=== PATIENT | female | born 1980 | race Caucasian/White ===

== ENCOUNTER 2018-12-30 20:17 | Emergency (ER) | payer MEDICARE, MEDICAID, SELFPAY ==
[2018-12-30 20:22] VITALS: BP 141/84; PULSE 101; RESP 18; TEMP 36.3; O2SAT 98; BMI 35.6
[2018-12-30 21:40] LABS: Add Manual Diff / Slide Review NO; Basophils Absolute Auto 100 /uL (0-100); Eosinophils Absolute Auto 200 /uL (0-450); Hemoglobin 14.6 g/dL (12.0-16.0); Lymphocytes Absolute Auto 1300 /uL (1100-4500); Lymphocytes Percent Auto 21.7 % (25-40); Mean Corpuscular HGB Conc 33.9 % (30-36); Mean Corpuscular Hemoglobin 31.4 PG (26-34); Mean Corpuscular Volume 92.5 fL (80-100); Monocytes Absolute Auto 500 /uL (0-900); Monocytes Percent Auto 7.7 % (3-14); Neutrophils Absolute Auto 4000 /uL (1500-7000); Neutrophils Percent Auto 66.6 % (50-75); Platelet Count 226 X10^3/uL (150-400); Red Blood Cell Count 4.65 X10^6/uL (4.0-5.2); Red Cell Distribution Width 13.2 % (11.6-14.8)
[2018-12-30 21:51] LABS: Alanine Aminotransferase 23 IU/L (9-52); Albumin 4.6 g/dL (3.5-5.0); Albumin Globulin Ratio 1.4 (1.0-2.8); Alkaline Phosphatase 64 U/L (38-126); Aspartate Aminotransferase 21 IU/L (14-36); BUN Creatinine Ratio 21.3 (6-22); Bilirubin Total 0.5 mg/dL (0.2-1.3); Blood Urea Nitrogen 17 mg/dL (7-17); Calcium 9.5 mg/dL (8.4-10.2); Carbon Dioxide 27 mmol/L (22-32); Chloride 105 mmol/L (98-107); Estimated Glomerular Filt Rate > 60.0 mL/min (>60); Globulin 3.3 g/dL (1.7-4.1); Glucose 252 mg/dL (70-100); HEMOLYSIS 28 (0-50); Lipase 153 U/L (23-300); Potassium 4.3 mmol/L (3.4-5.1); Sodium 142 mmol/L (137-145); Total Protein 7.9 g/dL (6.3-8.2)
[2018-12-30 23:21] LABS: Bacteria Urine Few (2-10); Culture Indicated Urine Specimen Cultured; RBC Urine 30-100/HPF (0-5/HPF); Squamous Epithelial Cell Urine 1-5 /HPF; WBC Urine 1-5/HPF (0-5/HPF)
[2018-12-31] MEDS: cephALEXin 250 MG PREPACK 1 BOTTLE MISC (00:12)
[2018-12-31 00:24] VITALS: BP 115/60; PULSE 70; RESP 14; TEMP 36.8; O2SAT 98
--- NOTE | 2019-01-02 00:02 | ED.ABDPAIN ---
HPI - Abdominal Pain General Chief Complaint: Abdominal Pain Stated Complaint: STOMACH CRAMPS AND GOING INTO CHEST Time Seen by Provider: 12/30/18 22:15 Source: patient and family Mode of arrival: ambulatory Limitations: no limitations History of Present Illness HPI narrative: 38-year-old female with special needs presents with her mother and a chief complaint of suprapubic tenderness, dysuria in the absence of vaginal bleeding or discharge for the past few days. She has had no nausea or vomiting and denies fever or chills. She does have episodes of abdominal pain which goes a bit higher into her abdomen but not currently. Patient denies any history of the same. Her pain is worse with motion and improves with rest. MD complaint: abdominal pain Pain Consistency: intermittent Location: suprapubic Severity: mild Radiation: none Migration to: no migration Relieving factors: nothing Exacerbating factors: nothing Related Data Home Medications Medication Instructions Recorded Confirmed [TUMERIC] #0 09/13/17 12/26/18 multivitamin [Multiple Vitamins] #0 09/13/17 12/26/18 vitamin E [Aquasol E (d-alpha #0 09/13/17 12/26/18 tocopherol)] ascorbate calcium 500 mg tablet 500 mg PO DAILY 10/24/18 12/26/18 metformin 1,000 mg tablet 1,000 mg PO BID 10/24/18 12/26/18 Previous Rx's Medication Instructions Recorded Ajovy 225 mg [id number] QMONTH 09/07/18 #1 [id number] NS acetazolamide 250 mg tablet 250 mg PO BID #60 tab 10/24/18 cephalexin [Keflex] 500 mg PO QID 7 Days #28 cap 12/31/18 Allergies Allergy/AdvReac Type Severity Reaction Status Date / Time No Known Drug Allergies Allergy Verified 12/30/18 20:22 Review of Systems Constitutional Denies chills, Denies fever(s), Denies lethargy and Denies weakness Eyes Denies change in vision, Denies eye discharge, Denies irritation and Denies loss of vision ENT Ears, Nose, Mouth, and Throat: Denies change in voice, Denies neck pain and Denies sore throat Cardiovascular Denies chest pain, Denies irregular heart rhythm, Denies lightheadedness, Denies palpitations, Denies dyspnea, Denies dyspnea on exertion and Denies orthopnea Respiratory Denies cough, Denies dyspnea, Denies dyspnea on exertion and Denies wheezing Gastrointestinal Gastrointestinal: Reports abdominal pain, Denies change in bowel habits, Denies diarrhea, Denies nausea and Denies vomiting Genitourinary Denies hematuria, Reports dysuria, Reports pelvic pain, Denies flank pain, Denies urinary incontinence and Denies urinary urgency Musculoskeletal Denies neck pain Integumentary/Breasts Denies pruritus, Denies erythema, Denies rash and Denies wounds Neurologic Denies confusion, Denies loss of vision and Denies weakness Psychiatric Denies anxiety, Denies confusion, Denies depression, Denies homicidal ideation and Denies suicidal ideation Endocrine Denies palpitations Hematologic/Lymphatic Denies easy bruising Allergic/Immunologic Denies wheezing PFSH Social History Smoking Status: Never smoker Social History Smoking Status: Never smoker Exam Narrative Exam Narrative: GENERAL: 38-year-old female, resting comfortably, pleasant, in no obvious or significant distress HEAD: Atraumatic. Normocephalic. No temporal or scalp tenderness. EYES: Pupils equal round and reactive. Extraocular motions intact. No scleral icterus. No injection or drainage. ENT: Nose without bleeding, purulent drainage or septal hematoma. Throat without erythema, tonsillar hypertrophy or exudate. Uvula midline. Airway patent. NECK: Trachea midline. No JVD or lymphadenopathy. Supple, nontender, no meningeal signs. CARDIOVASCULAR: Regular rate and rhythm without murmurs, gallops, or rubs. RESPIRATORY: Clear to auscultation. Breath sounds equal bilaterally. No wheezes, rales, or rhonchi. GASTROINTESTINAL: Abdomen soft, mild suprapubic tenderness, nondistended. No hepato-splenomegaly, or palpable masses. No guarding. PELVIC: no bleeding or discharge. No pain. EXTREMITIES: No clubbing, cyanosis, or edema. No joint tenderness, effusion, or edema noted. BACK: Nontender without deformity or crepitance. No flank tenderness. NEURO: AOx3. SKIN: No rash or erythema. Initial Vital Signs Initial Vital Signs: Vital Signs Temperature 97.4 F L 12/30/18 20:22 Pulse Rate 101 H 12/30/18 20:22 Respiratory Rate 18 12/30/18 20:22 Blood Pressure 141/84 H 12/30/18 20:22 Pulse Oximetry 98 12/30/18 20:22 Course Orders Ordered: Discontinued Medications Cefazolin Sodium (Keflex) 1 bottle MISC SEEINSTR ONE Stop: 12/31/18 00:08 Last Admin: 12/31/18 00:12 Dose: 500 mg MDM - Abdominal Pain Differential Diagnosis Differential diagnosis: Likely abdominal pain, acute appendicitis, calculus of kidney, constipation, diverticulitis, endometriosis, gastroenteritis, pancreatitis and small bowel obstruction Medical Records Attestation: I reviewed the patient's medical records. Lab Data Attestation: I reviewed the patient's lab results. Result diagrams: 12/30/18 21:30 12/30/18 21:30 Lab Results 12/30/18 12/30/18 12/30/18 Range/Units 21:30 21:30 22:45 WBC 6.0 (4.5-11.0) X10^3/uL RBC 4.65 (4.0-5.2) X10^6/uL Hgb 14.6 (12.0-16.0) g/dL Hct 43.0 (36-46) % MCV 92.5 (80-100) fL MCH 31.4 (26-34) PG MCHC 33.9 (30-36) % RDW 13.2 (11.6-14.8) % Plt Count 226 (150-400) X10^3/uL Neut % (Auto) 66.6 (50-75) % Lymph % (Auto) 21.7 L (25-40) % [place] % (Auto) 7.7 (3-14) % Eos % (Auto) 3.0 (2-4) % Baso % (Auto) 1.0 (0-2) % Neut # (Auto) 4000 (3812-8995) /uL Lymph # (Auto) 1300 (8862-3024) /uL [place] # (Auto) 500 (0-900) /uL Eos # (Auto) 200 (0-450) /uL Baso # (Auto) 100 (0-100) /uL Sodium 142 (137-145) mmol/L Potassium 4.3 (3.4-5.1) mmol/L Chloride 105 (98-107) mmol/L Carbon Dioxide 27 (22-32) mmol/L BUN 17 (7-17) mg/dL Creatinine 0.80 (0.52-1.04) mg/dL Estimated GFR > 60.0 (>60) mL/min BUN/Creatinine Ratio 21.3 (6-22) Glucose 252 H (70-100) mg/dL Calcium 9.5 (8.4-10.2) mg/dL Total Bilirubin 0.5 (0.2-1.3) mg/dL AST 21 (14-36) IU/L ALT 23 (9-52) IU/L Alkaline Phosphatase 64 (38-126) U/L Total Protein 7.9 (6.3-8.2) g/dL Albumin 4.6 (3.5-5.0) g/dL Globulin 3.3 (1.7-4.1) g/dL Albumin/Globulin Ratio 1.4 (1.0-2.8) Lipase 153 (23-300) U/L Urine RBC 30-100/hpf H (0-5/HPF) Urine WBC 1-5/hpf (0-5/HPF) Ur Squamous Epith Cells 1-5 /hpf Urine Bacteria Few (2-10) H (None) Ur Culture Indicated? Specimen cultured Point of care testing: Urine Dip Bedside Urine Glucose 250 mg/dl Bedside Urine Bilirubin - Negative Bedside Urine Ketone - Negative Urine Specific [place] 1.020 Bedside Urine Occult Blood +++ Bedside Urine pH 6.0 Bedside Urine Protein +/- 15 Bedside Urine Urobilinogen +/- 1mg Bedside Urine Nitrite - Negative Bedside Urine Leukocytes + 70 Esterase MDM Narrative Medical decision making narrative: Multiple etiologies for patient's symptoms considered including: [Vaginal infection but thought less likely given lack of findings on pelvic. Diverticulitis or other abdominal infection, thought less likely given lack of abnormal labs or significant abdominal exam findings. UT I thought most likely given the quality of urine and suprapubic tenderness Patient's symptoms improved or duration of stay with above-stated therapies. Findings and discharge diagnosis discussed with patient/family followed by verbalization of understanding Return precautions discussed with patient/family whom verbalize understanding. Discharge Plan Departure Patient Disposition: Home Clinical Impression: UTI (urinary tract infection) Discharge Date/Time: 12/31/18 00:24 Interventions: ED Discharge Assessment Last Done: 12/31/18 00:24 Instructions: DI for Urinary Tract Infection (UTI) Activity Restrictions/Additional Instructions: *You have been diagnosed with [ acute urinary tract infection with pelvic discomfort and hematuria ] *What to do: *Take medications as directed: antibiotics have been sent to [facility] in [place] *Follow up with your primary care provider in 2-3 days, call for an appointment. Let them know you were seen in the Emergency Department and that we ask that you be seen in follow up *Return to ER if you should have any new, worsening or concerning symptoms Prescriptions: New cephalexin [Keflex] 500 mg capsule 500 mg PO QID 7 Days Qty: 28 RF: 0 No Action vitamin E [Aquasol E (d-alpha tocopherol)] 50 UNIT/1 ML drops Qty: 0 RF: 0 multivitamin [Multiple Vitamins] 1 EACH tablet Qty: 0 RF: 0 [TUMERIC] Qty: 0 RF: 0 ascorbate calcium 500 mg tablet 500 mg PO DAILY RF: 0 metformin 1,000 mg tablet 1,000 mg PO BID RF: 0 acetazolamide 250 mg tablet 250 mg PO BID Qty: 60 RF: 5 Ajovy 225 mg pen injector 225 mg [id number] QMONTH Qty: 1 RF: 11 Referrals: Alex Warren MD [Primary Care Provider] -
--- NOTE | 2019-01-02 00:08 | ED_ITS ---
HPI - Abdominal Pain General Chief Complaint: Abdominal Pain Stated Complaint: STOMACH CRAMPS AND GOING INTO CHEST Time Seen by Provider: 12/30/18 22:15 Source: patient and family Mode of arrival: ambulatory Limitations: no limitations History of Present Illness HPI narrative: 38-year-old female with special needs presents with her mother and a chief complaint of suprapubic tenderness, dysuria in the absence of vaginal bleeding or discharge for the past few days. She has had no nausea or vomiting and denies fever or chills. She does have episodes of abdominal pain which goes a bit higher into her abdomen but not currently. Patient denies any history of the same. Her pain is worse with motion and improves with rest. MD complaint: abdominal pain Pain Consistency: intermittent Location: suprapubic Severity: mild Radiation: none Migration to: no migration Relieving factors: nothing Exacerbating factors: nothing Related Data Home Medications Medication Instructions Recorded Confirmed [TUMERIC] #0 09/13/17 12/26/18 multivitamin [Multiple Vitamins] #0 09/13/17 12/26/18 vitamin E [Aquasol E (d-alpha #0 09/13/17 12/26/18 tocopherol)] ascorbate calcium 500 mg tablet 500 mg PO DAILY 10/24/18 12/26/18 metformin 1,000 mg tablet 1,000 mg PO BID 10/24/18 12/26/18 Previous Rx's Medication Instructions Recorded Ajovy 225 mg [id number] QMONTH 09/07/18 #1 [id number] NS acetazolamide 250 mg tablet 250 mg PO BID #60 tab 10/24/18 cephalexin [Keflex] 500 mg PO QID 7 Days #28 cap 12/31/18 Allergies Allergy/AdvReac Type Severity Reaction Status Date / Time No Known Drug Allergies Allergy Verified 12/30/18 20:22 Review of Systems Constitutional Denies chills, Denies fever(s), Denies lethargy and Denies weakness Eyes Denies change in vision, Denies eye discharge, Denies irritation and Denies loss of vision ENT Ears, Nose, Mouth, and Throat: Denies change in voice, Denies neck pain and Denies sore throat Cardiovascular Denies chest pain, Denies irregular heart rhythm, Denies lightheadedness, Denies palpitations, Denies dyspnea, Denies dyspnea on exertion and Denies orthopnea Respiratory Denies cough, Denies dyspnea, Denies dyspnea on exertion and Denies wheezing Gastrointestinal Gastrointestinal: Reports abdominal pain, Denies change in bowel habits, Denies diarrhea, Denies nausea and Denies vomiting Genitourinary Denies hematuria, Reports dysuria, Reports pelvic pain, Denies flank pain, Denies urinary incontinence and Denies urinary urgency Musculoskeletal Denies neck pain Integumentary/Breasts Denies pruritus, Denies erythema, Denies rash and Denies wounds Neurologic Denies confusion, Denies loss of vision and Denies weakness Psychiatric Denies anxiety, Denies confusion, Denies depression, Denies homicidal ideation and Denies suicidal ideation Endocrine Denies palpitations Hematologic/Lymphatic Denies easy bruising Allergic/Immunologic Denies wheezing PFSH Social History Smoking Status: Never smoker Social History Smoking Status: Never smoker Exam Narrative Exam Narrative: GENERAL: 38-year-old female, resting comfortably, pleasant, in no obvious or significant distress HEAD: Atraumatic. Normocephalic. No temporal or scalp tenderness. EYES: Pupils equal round and reactive. Extraocular motions intact. No scleral icterus. No injection or drainage. ENT: Nose without bleeding, purulent drainage or septal hematoma. Throat without erythema, tonsillar hypertrophy or exudate. Uvula midline. Airway patent. NECK: Trachea midline. No JVD or lymphadenopathy. Supple, nontender, no meningeal signs. CARDIOVASCULAR: Regular rate and rhythm without murmurs, gallops, or rubs. RESPIRATORY: Clear to auscultation. Breath sounds equal bilaterally. No wheezes , rales, or rhonchi. GASTROINTESTINAL: Abdomen soft, mild suprapubic tenderness, nondistended. No hepato-splenomegaly, or palpable masses. No guarding. PELVIC: no bleeding or discharge. No pain. EXTREMITIES: No clubbing, cyanosis, or edema. No joint tenderness, effusion, or edema noted. BACK: Nontender without deformity or crepitance. No flank tenderness. NEURO: AOx3. SKIN: No rash or erythema. Initial Vital Signs Initial Vital Signs: Vital Signs Temperature 97.4 F L 12/30/18 20:22 Pulse Rate 101 H 12/30/18 20:22 Respiratory Rate 18 12/30/18 20:22 Blood Pressure 141/84 H 12/30/18 20:22 Pulse Oximetry 98 12/30/18 20:22 Course Orders Ordered: Discontinued Medications Cefazolin Sodium (Keflex) 1 bottle MISC SEEINSTR ONE Stop: 12/31/18 00:08 Last Admin: 12/31/18 00:12 Dose: 500 mg MDM - Abdominal Pain Differential Diagnosis Differential diagnosis: Likely abdominal pain, acute appendicitis, calculus of kidney, constipation, diverticulitis, endometriosis, gastroenteritis, pancreatitis and small bowel obstruction Medical Records Attestation: I reviewed the patient's medical records. Lab Data Attestation: I reviewed the patient's lab results. Result diagrams: 12/30/18 21:30 12/30/18 21:30 Lab Results 12/30/18 12/30/18 12/30/18 Range/Units 21:30 21:30 22:45 WBC 6.0 (4.5-11.0) X10^3/uL RBC 4.65 (4.0-5.2) X10^6/uL Hgb 14.6 (12.0-16.0) g/dL Hct 43.0 (36-46) % MCV 92.5 (80-100) fL MCH 31.4 (26-34) PG MCHC 33.9 (30-36) % RDW 13.2 (11.6-14.8) % Plt Count 226 (150-400) X10^3/uL Neut % (Auto) 66.6 (50-75) % Lymph % (Auto) 21.7 L (25-40) % [place] % (Auto) 7.7 (3-14) % Eos % (Auto) 3.0 (2-4) % Baso % (Auto) 1.0 (0-2) % Neut # (Auto) 4000 (1107-9079) /uL Lymph # (Auto) 1300 (0308-0557) /uL [place] # (Auto) 500 (0-900) /uL Eos # (Auto) 200 (0-450) /uL Baso # (Auto) 100 (0-100) /uL Sodium 142 (137-145) mmol/L Potassium 4.3 (3.4-5.1) mmol/L Chloride 105 (98-107) mmol/L Carbon Dioxide 27 (22-32) mmol/L BUN 17 (7-17) mg/dL Creatinine 0.80 (0.52-1.04) mg/dL Estimated GFR > 60.0 (>60) mL/min BUN/Creatinine Ratio 21.3 (6-22) Glucose 252 H (70-100) mg/dL Calcium 9.5 (8.4-10.2) mg/dL Total Bilirubin 0.5 (0.2-1.3) mg/dL AST 21 (14-36) IU/L ALT 23 (9-52) IU/L Alkaline Phosphatase 64 (38-126) U/L Total Protein 7.9 (6.3-8.2) g/dL Albumin 4.6 (3.5-5.0) g/dL Globulin 3.3 (1.7-4.1) g/dL Albumin/Globulin Ratio 1.4 (1.0-2.8) Lipase 153 (23-300) U/L Urine RBC 30-100/hpf H (0-5/HPF) Urine WBC 1-5/hpf (0-5/HPF) Ur Squamous Epith Cells 1-5 /hpf Urine Bacteria Few (2-10) H (None) Ur Culture Indicated? Specimen cultured Point of care testing: Urine Dip Bedside Urine Glucose 250 mg/dl Bedside Urine Bilirubin - Negative Bedside Urine Ketone - Negative Urine Specific [place] 1.020 Bedside Urine Occult Blood +++ Bedside Urine pH 6.0 Bedside Urine Protein +/- 15 Bedside Urine Urobilinogen +/- 1mg Bedside Urine Nitrite - Negative Bedside Urine Leukocytes + 70 Esterase MDM Narrative Medical decision making narrative: Multiple etiologies for patient's symptoms considered including: [Vaginal infection but thought less likely given lack of findings on pelvic. Diverticulitis or other abdominal infection, thought less likely given lack of abnormal labs or significant abdominal exam findings. UT I thought most likely given the quality of urine and suprapubic tenderness Patient's symptoms improved or duration of stay with above-stated therapies. Findings and discharge diagnosis discussed with patient/family followed by verbalization of understanding Return precautions discussed with patient/family whom verbalize understanding. Discharge Plan Departure Patient Disposition: Home Clinical Impression: UTI (urinary tract infection) Discharge Date/Time: 12/31/18 00:24 Interventions: ED Discharge Assessment Last Done: 12/31/18 00:24 Instructions: DI for Urinary Tract Infection (UTI) Activity Restrictions/Additional Instructions: *You have been diagnosed with [ acute urinary tract infection with pelvic discomfort and hematuria ] *What to do: *Take medications as directed: antibiotics [facility] in [place] *Follow up with your primary care provider in 2-3 days, call for an appointment. Let them know you were seen in the Emergency Department and that we ask that you be seen in follow up *Return to ER if you should have any new, worsening or concerning symptoms Prescriptions: New cephalexin [Keflex] 500 mg capsule 500 mg PO QID 7 Days Qty: 28 RF: 0 No Action vitamin E [Aquasol E (d-alpha tocopherol)] 50 UNIT/1 ML drops Qty: 0 RF: 0 multivitamin [Multiple Vitamins] 1 EACH tablet Qty: 0 RF: 0 [TUMERIC] Qty: 0 RF: 0 ascorbate calcium 500 mg tablet 500 mg PO DAILY RF: 0 metformin 1,000 mg tablet 1,000 mg PO BID RF: 0 acetazolamide 250 mg tablet 250 mg PO BID Qty: 60 RF: 5 Ajovy 225 mg pen injector 225 mg [id number] QMONTH Qty: 1 RF: 11 Referrals: Alex Warren MD [Primary Care Provider] -
== END 2018-12-31 00:24 | disposition home or self-care (01) ==
PROVIDERS: Emergency Provider Emergency Medicine; PCP Family Medicine
DX: N39.0 Urinary tract infection, site not specified (principal)
CPT/HCPCS: 36591; 80053; 81003; 81015; 83690; 85025; 87086; 93005; 99283; 99284

== ENCOUNTER 2019-02-27 14:52 | Emergency (ER) | payer MEDICARE, MEDICAID, SELFPAY ==
[2019-02-27 15:18] VITALS: BP 116/76; PULSE 90; RESP 16; TEMP 36.4; O2SAT 98; BMI 37.2
--- NOTE | 2019-02-27 16:55 | PC.NURSE ---
Pt w/ special needs. Multiple complaints. c/o ear pain, currently being treated for uti. Feels 'awful'. No fever. Easy work of breathing. Taking po food and fluids. Denies nausea / vomiting. Abd soft, non tender. Breath sounds clear. Mother at bedside.
--- NOTE | 2019-02-27 17:08 | ED_ITS ---
HPI - URI/Sore Throat General Chief Complaint: Upper Respiratory Symptoms Stated Complaint: migraine,stomach problems,massive sore throat Time Seen by Provider: 02/27/19 16:56 Source: patient and family (Mother) Mode of arrival: ambulatory Limitations: no limitations History of Present Illness HPI Narrative: This is a 39-year-old female comes to the emergency department with complaint of headache, abdominal pain. Patient has had urinary frequency, urgency and dysuria. Patient has had a little bit of flank pain. She has not had any fevers. She has had some nausea but no vomiting she does occasionally get diarrhea which they relate to her dilvoproex, she takes this for migraines. She takes medication for diarrhea. She has had normal bowel movements recently. She states the pain is sort of in her abdomen sort of mid abdomen and bandlike. Patient states also sort of suprapubic. She has not had any vaginal bleeding or discharge. she has not had any prior surgeries. Related Data Home Medications Medication Instructions Recorded Confirmed [TUMERIC] #0 09/13/17 12/26/18 multivitamin [Multiple Vitamins] #0 09/13/17 12/26/18 vitamin E [Aquasol E (d-alpha #0 09/13/17 12/26/18 tocopherol)] ascorbate calcium 500 mg tablet 500 mg PO DAILY 10/24/18 12/26/18 divalproex 1,000 mg PO DAILY 02/27/19 02/27/19 hydrocortisone-acetic acid 02/27/19 metformin 1,500 mg PO DAILY 02/27/19 02/27/19 niacin [Niacor] 02/27/19 niacin [Niacor] 02/27/19 Previous Rx's Medication Instructions Recorded Ajovy 225 mg SUBCUT QMONTH #1 unit NS 09/07/18 diphenoxylate-atropine 2.5 1 tab PO Q12H PRN #60 tab 01/26/19 mg-0.025 mg tablet nitrofurantoin monohyd/m-cryst 100 mg PO BID #10 cap 02/27/19 [Macrobid] Allergies Allergy/AdvReac Type Severity Reaction Status Date / Time No Known Drug Allergies Allergy Verified 12/30/18 20:22 Review of Systems Review of Systems ROS Unobtainable: All systems reviewed & are unremarkable except as noted in HPI and below Constitutional Denies chills, Denies fever(s), Reports headache(s), Denies lethargy and Denies weakness ENT Ears, Nose, Mouth, and Throat: Reports headache(s) Cardiovascular Denies chest pain, Denies irregular heart rhythm, Denies lightheadedness, Denies palpitations, Denies dyspnea and Denies dyspnea on exertion Respiratory Denies change in phlegm color, Denies chest congestion, Denies cough, Denies dyspnea, Denies dyspnea on exertion and Denies wheezing Gastrointestinal Gastrointestinal: Reports abdominal pain, Denies change in bowel habits, Denies diarrhea, Denies nausea and Denies vomiting Genitourinary Denies abnormal vaginal bleeding, Denies hematuria, Reports urinary frequency, Reports dysuria, Denies flank pain, Denies urinary incontinence, Reports urinary urgency and Denies vaginal discharge Musculoskeletal Denies back pain Neurologic Reports headache(s) and Denies weakness Endocrine Denies palpitations Allergic/Immunologic Denies wheezing [facility] Medical History (Updated 02/27/19 @ 19:23 by Leta Reis DO) Developmental delay, moderate (Chronic) Migraines (Chronic) Social History Smoking Status: Never smoker Social History Smoking Status: Never smoker Exam Narrative Exam Narrative: GENERAL: Alert and oriented x three, obese, well-appearing female in mild distress. HEENT: Head normocephalic, atraumatic, EOMI, pupils reactive, face symmetric, moist mucous membranes NECK: Supple, full range of motion CARDIOVASCULAR: Regular rate and rhythm without murmurs, rubs or gallops. RESPIRATORY: Breath sounds equal bilaterally, no wheezes rales or rhonchi. ABDOMEN: Soft, mild generalized tenderness. Normoactive bowel sounds all 4 quadrants. No guarding or rebound, rigidity, no mass : No CVA tenderness EXTREMITIES: Normal range of motion, no clubbing or edema. Neurovascularly intact NEUROLOGICAL: Cranial nerves II through XII grossly intact. Moving all extremities SKIN: Warm, dry, no petechiae, no rashes or lesions. Initial Vital Signs Initial Vital Signs: Vital Signs Temperature 97.5 F L 02/27/19 15:18 Pulse Rate 90 02/27/19 15:18 Respiratory Rate 16 02/27/19 15:18 Blood Pressure 116/76 02/27/19 15:18 Pulse Oximetry 98 02/27/19 15:18 Course Orders Ordered: ED Orders 02/27/19 17:15 Urine Culture Stat Urine Microscopic Stat 02/27/19 18:15 Complete Blood Count AUTO DIFF Stat Comprehensive Metabolic Panel Stat Discontinued Medications Sodium Chloride (Normal Saline 0.9%) 1,000 mls @ 1,000 mls/hr IV BOLUS ONE Stop: 02/27/19 18:41 Last Infusion: 02/27/19 19:25 Dose: 0 mls/hr Admin: 02/27/19 18:20 Dose: 1,000 mls/hr Ketorolac Tromethamine (Toradol) 30 mg IV NOW ONE Stop: 02/27/19 17:43 Last Admin: 02/27/19 18:19 Dose: 30 mg Nitrofurantoin Macrocrystals (Macrobid 100 Mg Capsule) 100 mg PO NOW ONE Stop: 02/27/19 19:20 Last Admin: 02/27/19 19:26 Dose: 100 mg Ondansetron HCl (Zofran) 4 mg IV NOW ONE Stop: 02/27/19 17:43 Last Admin: 02/27/19 18:19 Dose: 4 mg Vital Signs - 8 hr 02/27/19 15:18 02/27/19 17:17 02/27/19 19:37 Temperature 97.5 F L Pulse Rate 90 85 77 Respiratory Rate 16 18 20 Blood Pressure 116/76 113/50 L Blood Pressure [Left Arm] 130/101 H Pulse Oximetry 98 99 100 MDM - URI/Sore Throat Lab Data Attestation: I reviewed the patient's lab results. Result diagrams: 02/27/19 18:15 02/27/19 18:15 Lab Results 02/27/19 02/27/19 02/27/19 Range/Units 17:15 18:15 18:15 WBC 5.9 (4.5-11.0) X10^3/uL RBC 5.12 (4.0-5.2) X10^6/uL Hgb 15.4 (12.0-16.0) g/dL Hct 47.0 H (36-46) % MCV 91.8 (80-100) fL MCH 30.2 (26-34) PG MCHC 32.8 (30-36) % RDW 12.6 (11.6-14.8) % Plt Count 184 (150-400) X10^3/uL Neut % (Auto) 61.2 (50-75) % Lymph % (Auto) 28.3 (25-40) % [place] % (Auto) 8.4 (3-14) % Eos % (Auto) 1.6 L (2-4) % Baso % (Auto) 0.5 (0-2) % Neut # (Auto) 3600 (7244-3183) /uL Lymph # (Auto) 1700 (8507-5688) /uL [place] # (Auto) 500 (0-900) /uL Eos # (Auto) 100 (0-450) /uL Baso # (Auto) 0 (0-100) /uL Sodium 138 (137-145) mmol/L Potassium 4.1 (3.4-5.1) mmol/L Chloride 102 (98-107) mmol/L Carbon Dioxide 23 (22-32) mmol/L BUN 12 (7-17) mg/dL Creatinine 0.60 (0.52-1.04) mg/dL Estimated GFR > 60.0 (>60) mL/min BUN/Creatinine Ratio 20.0 (6-22) Glucose 108 H (70-100) mg/dL Calcium 9.7 (8.4-10.2) mg/dL Total Bilirubin 0.5 (0.2-1.3) mg/dL AST 23 (14-36) IU/L ALT 26 (9-52) IU/L Alkaline Phosphatase 59 (38-126) U/L Total Protein 7.9 (6.3-8.2) g/dL Albumin 4.6 (3.5-5.0) g/dL Globulin 3.3 (1.7-4.1) g/dL Albumin/Globulin Ratio 1.4 (1.0-2.8) Urine RBC 0-1/hpf D (0-5/HPF) Urine WBC 1-5/hpf (0-5/HPF) Ur Squamous Epith Cells 1-5 /hpf Ur Transition Epith Cell 1-5/hpf (0-5/HPF) Urine Bacteria Few (2-10) H (None) Ur Culture Indicated? Specimen cultured Point of Care Testing Test Results Negative Rapid Strep A Negative Urine Dip Bedside Urine Glucose Negative Bedside Urine Bilirubin - Negative Bedside Urine Ketone ++ [address] 1.020 Bedside Urine Occult Blood - Negative Bedside Urine pH 6.5 Bedside Urine Protein - Negative Bedside Urine Urobilinogen +/- 1mg Bedside Urine Nitrite - Negative Bedside Urine Leukocytes ++ 125 Esterase MDM Narrative Medical decision making narrative: Patient was complaining of migraines, she has had Toradol and Zofran in the past which has been helpful. She has been having some urinary symptoms. Urine shows some leukocyte esterase. Last urine culture showed mixed chino. CBC and CMP did not show any major changes. Discussed with patient and mother, plan to start a new antibiotic although discussed at that urinalysis did not show a complete slam dunk for infection. Patient had leukocyte esterase but no nitrates. She did have some HPF. Urine culture was sent. Patient was started on Macrobid. We discussed lab work. We discussed possible further imaging but at this time was deferred by family. Patient had is only mildly tender on examination. she is feeling little bit more comfortable with Toradol. She is eating juice and crackers and cheese stick in the room. Discussed with Mom signs and symptoms to watch out for and reasons to return emergently. Discharge Plan Departure Patient Disposition: Home Clinical Impression: Abdominal pain, Migraine UTI (urinary tract infection) Qualifiers: Urinary tract infection type: site unspecified Discharge Date/Time: 02/27/19 19:38 Interventions: ED Discharge Assessment Last Done: 02/27/19 19:37 Instructions: DI for Urinary Tract Infection (UTI) Activity Restrictions/Additional Instructions: Follow-up with primary care in the next 2-3 days for recheck. Take antibiotics until they are completely gone. I suspect you may still be having urinary symptoms but urine culture has been sent it takes 48 hours for urine cultures to result. Continue with ibuprofen up to 800 mg every 8 hours and/or Tylenol to a 1000 mg every 8 hours as needed for symptoms. Return to the ER for fevers greater than 100.4, persistent vomiting, rapidly worsening abdominal or back pain, passing out, blockers bloody stools or other new or concerning symptoms. Prescriptions: New nitrofurantoin monohyd/m-cryst [Macrobid] 100 mg capsule 100 mg PO BID Qty: 10 RF: 0 No Action vitamin E [Aquasol E (d-alpha tocopherol)] 50 UNIT/1 ML drops Qty: 0 RF: 0 multivitamin [Multiple Vitamins] 1 EACH tablet Qty: 0 RF: 0 [TUMERIC] Qty: 0 RF: 0 diphenoxylate-atropine [Lomotil] 2.5-0.025 mg tablet 1 tab PO Q12H PRN (Reason: diarrhea) Qty: 60 RF: 2 hydrocortisone-acetic acid 1-2 % drops RF: 0 divalproex 500 mg tablet extended release 24 hr 1,000 mg PO DAILY RF: 0 niacin [Niacor] 500 mg tablet RF: 0 metformin 750 mg tablet extended release 24 hr 1,500 mg PO DAILY RF: 0 niacin [Niacor] 500 mg tablet RF: 0 ascorbate calcium 500 mg tablet 500 mg PO DAILY RF: 0 Ajovy 225 mg pen injector 225 mg SUBCUT QMONTH Qty: 1 RF: 11 Referrals: Alex Warren MD [Primary Care Provider] -
[2019-02-27 17:17] VITALS: BP 130/101; PULSE 85; RESP 18; O2SAT 99
[2019-02-27 18:05] LABS: Bacteria Urine Few (2-10); Culture Indicated Urine Specimen Cultured; RBC Urine 0-1/HPF (0-5/HPF); Squamous Epithelial Cell Urine 1-5 /HPF; Transitional Epi Cells Urine 1-5/HPF (0-5/HPF); WBC Urine 1-5/HPF (0-5/HPF)
[2019-02-27] MEDS: KETOROLAC 60 MG/2 ML VIAL 30 MG IV (18:19)
[2019-02-27] MEDS: ONDANSETRON 4 MG/2 ML INJ IV (18:19)
[2019-02-27] MEDS: SODIUM CHLORIDE 0.9% 1,000 ML 1000 ML IV (18:20)
[2019-02-27 18:54] LABS: Alanine Aminotransferase 26 IU/L (9-52); Albumin 4.6 g/dL (3.5-5.0); Albumin Globulin Ratio 1.4 (1.0-2.8); Alkaline Phosphatase 59 U/L (38-126); Aspartate Aminotransferase 23 IU/L (14-36); Bilirubin Total 0.5 mg/dL (0.2-1.3); Blood Urea Nitrogen 12 mg/dL (7-17); Calcium 9.7 mg/dL (8.4-10.2); Carbon Dioxide 23 mmol/L (22-32); Chloride 102 mmol/L (98-107); Estimated Glomerular Filt Rate > 60.0 mL/min (>60); Globulin 3.3 g/dL (1.7-4.1); Glucose 108 mg/dL (70-100); HEMOLYSIS < 15 (0-50); Potassium 4.1 mmol/L (3.4-5.1); Sodium 138 mmol/L (137-145); Total Protein 7.9 g/dL (6.3-8.2)
[2019-02-27 18:57] LABS: Add Manual Diff / Slide Review NO; Basophils Absolute Auto 0 /uL (0-100); Basophils Percent Auto 0.5 % (0-2); Eosinophils Absolute Auto 100 /uL (0-450); Eosinophils Percent Auto 1.6 % (2-4); Hemoglobin 15.4 g/dL (12.0-16.0); Lymphocytes Absolute Auto 1700 /uL (1100-4500); Lymphocytes Percent Auto 28.3 % (25-40); Mean Corpuscular HGB Conc 32.8 % (30-36); Mean Corpuscular Hemoglobin 30.2 PG (26-34); Mean Corpuscular Volume 91.8 fL (80-100); Monocytes Absolute Auto 500 /uL (0-900); Monocytes Percent Auto 8.4 % (3-14); Neutrophils Absolute Auto 3600 /uL (1500-7000); Neutrophils Percent Auto 61.2 % (50-75); Platelet Count 184 X10^3/uL (150-400); Red Blood Cell Count 5.12 X10^6/uL (4.0-5.2); Red Cell Distribution Width 12.6 % (11.6-14.8); White Blood Cell Count 5.9 X10^3/uL (4.5-11.0)
[2019-02-27] MEDS: NITROFURANTOIN ER 100 MG CAPSULE PO (19:26)
[2019-02-27 19:37] VITALS: BP 113/50; PULSE 77; RESP 20; O2SAT 100
== END 2019-02-27 19:38 | disposition home or self-care (01) ==
PROVIDERS: Emergency Provider Emergency Medicine; PCP Family Medicine
DX: R10.9 Unspecified abdominal pain (principal); G43.909 Migraine, unspecified, not intractable, without status migrainosus; R11.0 Nausea; R30.0 Dysuria
CPT/HCPCS: 36591; 80053; 81003; 81015; 81025; 85025; 87086; 87880; 96361; 96374; 96375; 99283; 99284; J1885; J2405

== ENCOUNTER 2019-02-28 16:22 | Emergency (ER) | payer MEDICARE, MEDICAID, SELFPAY ==
[2019-02-28 16:28] VITALS: PULSE 99; RESP 20; TEMP 36.9; O2SAT 99
--- NOTE | 2019-02-28 16:52 | ED.ALLEREA ---
HPI - Allergic Reaction <RICHARD Taylor - Last Filed: 02/28/19 21:30> General Chief complaint: Allergic Reaction Stated complaint: ALLERGIC REACTION Time Seen by Provider: 02/28/19 16:52 Source: patient and family Mode of arrival: ambulatory Limitations: no limitations History of Present Illness HPI narrative: 39-year-old female with history of developmental delay and is a nonsmoker here for complaint of having allergic type reaction with pain with swallowing and feeling lightheaded after taking niacin today. She is never taking niacin before and shortly after taking it she had the symptoms. she feels some discomfort in her throat area. No chest pain. out in triage as it was reported that the difficulty in obtaining a blood pressure. She was ambulatory to the emergency room. Signs and symptoms started just prior to arrival. MD complaint: allergic reaction Related Data Home Medications Medication Instructions Recorded Confirmed [TUMERIC] #0 09/13/17 12/26/18 multivitamin [Multiple Vitamins] #0 09/13/17 12/26/18 vitamin E [Aquasol E (d-alpha #0 09/13/17 12/26/18 tocopherol)] ascorbate calcium 500 mg tablet 500 mg PO DAILY 10/24/18 12/26/18 divalproex 1,000 mg PO DAILY 02/27/19 02/27/19 hydrocortisone-acetic acid 02/27/19 metformin 1,500 mg PO DAILY 02/27/19 02/27/19 niacin [Niacor] 02/27/19 niacin [Niacor] 02/27/19 Previous Rx's Medication Instructions Recorded Ajovy 225 mg SUBCUT QMONTH #1 unit NS 09/07/18 diphenoxylate-atropine 2.5 1 tab PO Q12H PRN #60 tab 01/26/19 mg-0.025 mg tablet nitrofurantoin monohyd/m-cryst 100 mg PO BID #10 cap 02/27/19 [Macrobid] ondansetron 4 mg PO BID-TID PRN #6 tab 02/28/19 prednisone 40 mg PO DAILY #8 tab 02/28/19 Allergies Allergy/AdvReac Type Severity Reaction Status Date / Time niacin Allergy Severe Anaphylaxis Verified 02/28/19 17:01 Review of Systems <RICHARD Taylor - Last Filed: 02/28/19 21:30> Eyes Denies change in vision, Denies eye discharge, Denies irritation and Denies loss of vision ENT Comments: Facial swelling shortness of breath and sensation of a tightening in her throat it with pain Cardiovascular Denies chest pain, Denies irregular heart rhythm, Denies lightheadedness, Denies palpitations, Denies dyspnea, Denies dyspnea on exertion and Denies orthopnea Respiratory Denies cough, Denies dyspnea, Denies dyspnea on exertion and Denies wheezing Gastrointestinal Gastrointestinal: Denies abdominal pain, Denies change in bowel habits, Denies diarrhea, Denies nausea and Denies vomiting Genitourinary Denies hematuria, Denies flank pain, Denies urinary incontinence and Denies urinary urgency Integumentary/Breasts Denies pruritus, Denies erythema, Denies rash and Denies wounds Neurologic Denies loss of vision Endocrine Denies palpitations Hematologic/Lymphatic Denies easy bruising Allergic/Immunologic Denies wheezing PFSH <RICHARD Taylor - Last Filed: 02/28/19 21:30> Medical History Developmental delay, moderate (Chronic) Migraines (Chronic) Social History Smoking Status: Never smoker Social History Smoking Status: Never smoker Exam <RICHARD Taylor - Last Filed: 02/28/19 21:30> Initial Vital Signs Initial Vital Signs: Vital Signs Temperature 98.4 F 02/28/19 16:28 Pulse Rate 99 H 02/28/19 16:28 Respiratory Rate 20 02/28/19 16:28 Pulse Oximetry 99 02/28/19 16:28 Const General: cooperative, well developed, acute distress and anxious Nutritional Appearance: well nourished Orientation: alert, awake and oriented x3 HENMT Mouth: oral mucosae normal and moist mucous membranes Eyes Conjunctivae: conjunctivae normal Sclera: sclerae normal Pupils: PERRL EOM: EOM intact bilaterally Neck Neck: normal visual inspection, trachea midline, No lymphadenopathy, No midline deformity and No JVD Lymphatic: No lymphedema Resp Effort & Inspection: normal respiratory effort, able to speak in complete sentences, no respiratory distress and no use of accessory muscles Auscultation: clear to auscultation bilaterally, no rales, no rhonchi and no wheezes Cardio Rate: regular rate Rhythm: regular rhythm Heart Sounds: no click, no gallops, no murmurs and no rubs Skin General: no rashes or lesions noted, No jaundice and No petechiae Neuro General: alert, oriented x3, gait normal and no focal motor deficits Speech: speech normal Extrem General: full ROM, no clubbing, cyanosis or edema, no pedal edema and no calf tenderness <Felipe Rockwell DO - Last Filed: 03/01/19 00:02> Initial Vital Signs Initial Vital Signs: Vital Signs Temperature 98.4 F 02/28/19 16:28 Pulse Rate 99 H 02/28/19 16:28 Respiratory Rate 20 02/28/19 16:28 Pulse Oximetry 99 02/28/19 16:28 Course <RICHARD Taylor - Last Filed: 02/28/19 21:30> Orders Ordered: Discontinued Medications Diphenhydramine HCl (Benadryl) 25 mg IV NOW ONE Stop: 02/28/19 16:53 Last Admin: 02/28/19 17:08 Dose: 25 mg Epinephrine HCl (Adrenalin) 0.5 mg IM NOW ONE Stop: 02/28/19 17:10 Last Admin: 02/28/19 16:55 Dose: 0.5 mg Famotidine (Pepcid) 20 mg in 50 mls @ 200 mls/hr IV NOW ONE Stop: 02/28/19 17:06 Last Infusion: 02/28/19 17:22 Dose: 0 mls/hr Admin: 02/28/19 17:07 Dose: 200 mls/hr Sodium Chloride (Normal Saline 0.9%) 1,000 mls @ 1,000 mls/hr IV BOLUS ONE Stop: 02/28/19 17:51 Last Infusion: 02/28/19 18:29 Dose: 0 mls/hr Infusion: 02/28/19 17:24 Dose: 999 mls/hr Infusion: 02/28/19 17:09 Dose: 300 mls/hr Admin: 02/28/19 17:08 Dose: 1,000 mls/hr Methylprednisolone (Solu-Medrol 125 Mg Vial) 125 mg IV NOW ONE Stop: 02/28/19 16:53 Last Admin: 02/28/19 17:07 Dose: 125 mg Ondansetron HCl (Zofran Odt) 4 mg SL NOW ONE Stop: 02/28/19 19:52 Last Admin: 02/28/19 19:54 Dose: 4 mg Vital Signs - 8 hr 02/28/19 16:28 02/28/19 17:01 02/28/19 17:35 Temperature 98.4 F Pulse Rate 99 H 100 H 109 H Respiratory Rate 20 20 20 Blood Pressure Blood Pressure [Right Arm] 114/64 124/74 Pulse Oximetry 99 100 100 02/28/19 18:30 02/28/19 19:30 02/28/19 19:54 Temperature Pulse Rate 107 H 108 H 100 H Respiratory Rate 24 23 16 Blood Pressure 147/94 H Blood Pressure [Right Arm] 117/53 L 133/89 Pulse Oximetry 100 96 <Felipe Rockwell DO - Last Filed: 03/01/19 00:02> Orders Ordered: Discontinued Medications Diphenhydramine HCl (Benadryl) 25 mg IV NOW ONE Stop: 02/28/19 16:53 Last Admin: 02/28/19 17:08 Dose: 25 mg Epinephrine HCl (Adrenalin) 0.5 mg IM NOW ONE Stop: 02/28/19 17:10 Last Admin: 02/28/19 16:55 Dose: 0.5 mg Famotidine (Pepcid) 20 mg in 50 mls @ 200 mls/hr IV NOW ONE Stop: 02/28/19 17:06 Last Infusion: 02/28/19 17:22 Dose: 0 mls/hr Admin: 02/28/19 17:07 Dose: 200 mls/hr Sodium Chloride (Normal Saline 0.9%) 1,000 mls @ 1,000 mls/hr IV BOLUS ONE Stop: 02/28/19 17:51 Last Infusion: 02/28/19 18:29 Dose: 0 mls/hr Infusion: 02/28/19 17:24 Dose: 999 mls/hr Infusion: 02/28/19 17:09 Dose: 300 mls/hr Admin: 02/28/19 17:08 Dose: 1,000 mls/hr Methylprednisolone (Solu-Medrol 125 Mg Vial) 125 mg IV NOW ONE Stop: 02/28/19 16:53 Last Admin: 02/28/19 17:07 Dose: 125 mg Ondansetron HCl (Zofran Odt) 4 mg SL NOW ONE Stop: 02/28/19 19:52 Last Admin: 02/28/19 19:54 Dose: 4 mg Vital Signs - 8 hr 02/28/19 16:28 02/28/19 17:01 02/28/19 17:35 Temperature 98.4 F Pulse Rate 99 H 100 H 109 H Respiratory Rate 20 20 20 Blood Pressure Blood Pressure [Right Arm] 114/64 124/74 Pulse Oximetry 99 100 100 02/28/19 18:30 02/28/19 19:30 02/28/19 19:54 Temperature Pulse Rate 107 H 108 H 100 H Respiratory Rate 24 23 16 Blood Pressure 147/94 H Blood Pressure [Right Arm] 117/53 L 133/89 Pulse Oximetry 100 96 MDM - Allergic Reaction <RICHARD Taylor - Last Filed: 02/28/19 21:30> Lab Data Urine Dip Bedside Urine Glucose Negative Bedside Urine Bilirubin - Negative Bedside Urine Ketone ++ 40 Urine Specific [place] 1.020 Bedside Urine Occult Blood - Negative Bedside Urine pH 6.0 Bedside Urine Protein - Negative Bedside Urine Urobilinogen - Negative Bedside Urine Nitrite - Negative Bedside Urine Leukocytes +/- 15 Esterase MDM Narrative Medical decision making narrative: The patient was given epinephrine, Solu-Medrol, Benadryl, and Pepcid in the emergency room. Her symptoms improved. She was observed a couple hours and did not have return of her symptoms. she did feel a little bit of discomfort to her throat area however she was able to speak full sentences no acute distress. she was treated for anaphylactic allergic response due to her subjective of her throat feeling tight and throat pain along with difficulty in obtaining a blood pressure. Differential is for flushing and sensation from the niacin at self. She is instructed to stop taking the niacin. Follow up with primary care provider next couple days for re-evaluation. She is prescribed a short course of steroids over the next few days to prevent return of symptoms. For any worsening symptoms return to the emergency room. <Felipe Rockwell DO - Last Filed: 03/01/19 00:02> Lab Data Urine Dip Bedside Urine Glucose Negative Bedside Urine Bilirubin - Negative Bedside Urine Ketone ++ 40 Urine Specific [place] 1.020 Bedside Urine Occult Blood - Negative Bedside Urine pH 6.0 Bedside Urine Protein - Negative Bedside Urine Urobilinogen - Negative Bedside Urine Nitrite - Negative Bedside Urine Leukocytes +/- 15 Esterase Discharge Plan Departure Patient Disposition: Home Clinical Impression: Anaphylaxis Qualifiers: Encounter type: initial encounter Qualified Code(s): T78.2XXA - Anaphylactic shock, unspecified, initial encounter Discharge Date/Time: 02/28/19 19:55 Interventions: ED Discharge Assessment Last Done: 02/28/19 19:54 Instructions: DI for Anaphylaxis Activity Restrictions/Additional Instructions: Signs and symptoms presents as an allergic reaction. You were treated with multiple medications to help reverse this. UR placed on a short course of prednisone steroid to help keep symptoms from returning. Stop taking the niacin. Follow up with her primary care provider next couple days for re-evaluation. For any worsening symptoms return to the emergency room. Prescriptions: New prednisone 20 mg tablet 40 mg PO DAILY Qty: 8 RF: 0 ondansetron 4 mg tablet,disintegrating 4 mg PO BID-TID PRN (Reason: nausea and vomiting) Qty: 6 RF: 0 No Action vitamin E [Aquasol E (d-alpha tocopherol)] 50 UNIT/1 ML drops Qty: 0 RF: 0 multivitamin [Multiple Vitamins] 1 EACH tablet Qty: 0 RF: 0 [TUMERIC] Qty: 0 RF: 0 diphenoxylate-atropine [Lomotil] 2.5-0.025 mg tablet 1 tab PO Q12H PRN (Reason: diarrhea) Qty: 60 RF: 2 hydrocortisone-acetic acid 1-2 % drops RF: 0 divalproex 500 mg tablet extended release 24 hr 1,000 mg PO DAILY RF: 0 niacin [Niacor] 500 mg tablet RF: 0 metformin 750 mg tablet extended release 24 hr 1,500 mg PO DAILY RF: 0 niacin [Niacor] 500 mg tablet RF: 0 nitrofurantoin monohyd/m-cryst [Macrobid] 100 mg capsule 100 mg PO BID Qty: 10 RF: 0 ascorbate calcium 500 mg tablet 500 mg PO DAILY RF: 0 Ajovy 225 mg pen injector 225 mg SUBCUT QMONTH Qty: 1 RF: 11 Referrals: Alex Warren MD [Primary Care Provider] - <Felipe Rockwell DO - Last Filed: 04/03/19 00:02> Cosign ED Attending Cosignature Attestation: I was immediately available in the department for consultation. Documentation has been reviewed. I agree with assessment and plan.
[2019-02-28] MEDS: EPINEPHrine 1 MG/ML AMPUL 0.5 MG IM (16:55)
[2019-02-28 17:01] VITALS: BP 114/64; PULSE 100; RESP 20; O2SAT 100
[2019-02-28] MEDS: FAMOTIDINE 20 MG/50 ML PIGGYBACK 200 MG IV (17:07)
[2019-02-28] MEDS: methylPREDNISolone 125 MG/2 ML VIAL IV (17:07)
[2019-02-28] MEDS: diphenhydrAMINE 50 MG/ML VIAL 25 MG IV (17:08)
[2019-02-28] MEDS: SODIUM CHLORIDE 0.9% 1,000 ML 1000 ML IV (17:08)
[2019-02-28 17:35] VITALS: BP 124/74; PULSE 109; RESP 20; O2SAT 100
[2019-02-28 18:30] VITALS: BP 117/53; PULSE 107; RESP 24; O2SAT 100
[2019-02-28 19:30] VITALS: BP 133/89; PULSE 108; RESP 23
[2019-02-28 19:54] VITALS: BP 147/94; PULSE 100; RESP 16; O2SAT 96
[2019-02-28] MEDS: ONDANSETRON 4 MG ODT SL (19:54)
== END 2019-02-28 19:55 | disposition home or self-care (01) ==
PROVIDERS: Emergency Provider Nurse Practitioner Family; PCP Family Medicine
DX: T78.2XXA Anaphylactic shock, unspecified, initial encounter (principal)
CPT/HCPCS: 81003; 96361; 96372; 96374; 96375; 99284; 99285; J0171; J1200; J2930

== ENCOUNTER 2019-08-01 03:26 | Emergency (ER) | payer MEDICARE, MEDICAID, OTHER, SELFPAY ==
--- NOTE | 2019-08-01 03:30 | ED.HA ---
HPI - Headache General Chief Complaint: Headache Stated Complaint: MIGRAINE, BLOOD SUGAR 205 AND CLIMBING Time Seen by Provider: 08/01/19 03:30 Source: patient and family Mode of arrival: ambulatory Limitations: no limitations History of Present Illness HPI Narrative: 39-year-old female nonsmoker with history of developmental delay, type 2 diabetes, and migraines presents with a family member in the chief complaint of a generalized migraine type headache which started this evening at about midnight. Her pain is worse with bright lights and loud noise. She feels better in a dark quiet room. She has nausea but denies vomiting. She's had no injury, nor fever, chills, nor neck pain. She does not know her triggers. She was most recently seen at [facility] in [place] about a week ago for similar symptoms. MD Complaint: migraine Onset (ago): hour(s) Onset description: gradual Location: diffuse Severity: moderate Quality: aching and similar to previous headaches Relieving factors: dark room Exacerbating factors: light and noise Context: occurred at rest Associated symptoms: nausea, photophobia and sensitivity to sound Treatments prior to arrival: none Related Data Home Medications Medication Instructions Recorded Confirmed [TUMERIC] #0 09/13/17 04/11/19 multivitamin [Multiple Vitamins] #0 09/13/17 04/11/19 vitamin E [Aquasol E (d-alpha #0 09/13/17 04/11/19 tocopherol)] ascorbate calcium (vitamin C) 500 500 mg PO DAILY 10/24/18 04/11/19 mg tablet calcium 600 mg PO .qday 04/11/19 04/11/19 fluoxetine PO .Qday 04/11/19 04/11/19 lactobacillus combination no.8 PO .qday 04/11/19 04/11/19 metformin 750 mg tablet,extended 1,000 mg PO DAILY tab 04/11/19 04/11/19 release 24 hr omeprazole PO .qday 04/11/19 04/11/19 Previous Rx's Medication Instructions Recorded diphenoxylate-atropine 2.5 1 tab PO Q12H PRN #60 tab 01/26/19 mg-0.025 mg tablet diphenoxylate-atropine 2.5 1 tab PO BID PRN #60 tab 04/11/19 mg-0.025 mg tablet verapamil 120 mg tablet,extended 120 mg PO BID #60 tab 04/11/19 release divalproex 500 mg tablet,extended 500 mg PO DAILY #60 tab 05/23/19 release 24 hr Allergies Allergy/AdvReac Type Severity Reaction Status Date / Time niacin Allergy Severe Anaphylaxis Verified 04/11/19 14:35 Review of Systems Constitutional Constitutional: Denies chills, Denies fatigue, Denies fever(s), Denies frequent falls, Reports headache(s), Denies lethargy and Reports weakness Eyes Eyes: Denies change in vision, Denies eye discharge, Denies irritation and Denies loss of vision ENT Ears, Nose, Mouth, and Throat: Denies change in voice, Denies dizziness, Reports headache(s), Denies neck pain, Denies sore throat and Denies throat swelling Cardiovascular Cardiovascular: Denies chest pain, Denies irregular heart rhythm, Denies lightheadedness, Denies palpitations, Denies dyspnea, Denies dyspnea on exertion and Denies orthopnea Respiratory Respiratory: Denies cough, Denies dyspnea, Denies dyspnea on exertion and Denies wheezing Gastrointestinal Gastrointestinal: Denies abdominal pain, Denies change in bowel habits, Denies diarrhea, Reports nausea and Denies vomiting Genitourinary Genitourinary: Denies hematuria, Denies flank pain, Denies urinary incontinence and Denies urinary urgency Musculoskeletal Musculoskeletal: Denies back pain, Denies muscle weakness, Denies neck pain, Denies numbness and Denies tingling Integumentary/Breasts Skin/Breast: Denies pruritus, Denies erythema, Denies rash and Denies wounds Neurologic Neurologic: Denies behavioral changes, Denies confusion, Denies dizziness, Denies frequent falls, Reports headache(s), Denies loss of vision, Denies numbness, Denies tingling and Reports weakness Psychiatric Psychiatric: Denies anxiety, Denies behavioral changes, Denies confusion, Denies depression, Denies homicidal ideation and Denies suicidal ideation Endocrine Endocrine: Denies fatigue, Denies flushing and Denies palpitations Hematologic/Lymphatic Hematologic/Lymphatic: Denies easy bruising Allergic/Immunologic Allergic/Immunologic: Denies urticaria, Denies throat swelling and Denies wheezing PFSH Medical History Developmental delay, moderate (Chronic) Migraines (Chronic) Social History Smoking Status: Never smoker Social History Smoking Status: Never smoker Exam Narrative Exam Narrative: GENERAL: [39] year old patient appears stated age. Obese. Awake, alert, slow to respond, but at her neurologic baseline per family at the bedside HEAD: Atraumatic. Normocephalic. EYES: Pupils equal round and reactive. Extraocular motions intact. No scleral icterus. No injection or drainage. ENT: Nose without bleeding, purulent drainage. Throat without erythema, tonsillar hypertrophy or exudate. Airway patent. NECK: Trachea midline. Non tender CARDIOVASCULAR: Regular rate and rhythm without murmurs, gallops, or rubs. RESPIRATORY: Clear to auscultation. Breath sounds equal bilaterally. No wheezes, rales, or rhonchi. GASTROINTESTINAL: Abdomen soft, non-tender, nondistended. EXTREMITIES: No edema or joint tenderness. BACK: Nontender without deformity or crepitance. No flank tenderness. NEURO: Alert. No focal findings such as blurred vision, trouble with speach, extremity weakness, numbness or tingling. SKIN: No rash or erythema of visible areas Initial Vital Signs Initial Vital Signs: Vital Signs Temperature 99.0 F 08/01/19 03:38 Pulse Rate 102 H 08/01/19 03:38 Respiratory Rate 18 08/01/19 03:38 Blood Pressure 122/82 08/01/19 03:38 Pulse Oximetry 98 08/01/19 03:38 Course Orders Ordered: ED Orders 08/01/19 03:40 Basic Metabolic Panel Stat Complete Blood Count AUTO DIFF Stat Discontinued Medications Diphenhydramine HCl (Benadryl) 25 mg IV NOW ONE Stop: 08/01/19 03:42 Last Admin: 08/01/19 03:48 Dose: 25 mg Documented by: EMERITA Sodium Chloride (Normal Saline 0.9%) 1,000 mls @ 1,000 mls/hr IV BOLUS ONE Stop: 08/01/19 04:40 Last Infusion: 08/01/19 04:56 Dose: 0 mls/hr Documented by: Admin: 08/01/19 03:47 Dose: 1,000 mls/hr Documented by: HFARRINGTO Ketorolac Tromethamine (Toradol) 15 mg IV NOW ONE Stop: 08/01/19 03:42 Last Admin: 08/01/19 03:48 Dose: 15 mg Documented by: TARAARRINGSHILOH Metoclopramide HCl (Reglan) 10 mg IV NOW ONE Stop: 08/01/19 03:42 Last Admin: 08/01/19 03:48 Dose: 10 mg Documented by: TARAARRINGSHILOH Reevaluation(s) Reevaluation #1: Patient has a near complete resolution of symptoms after the above-stated therapies Vital Signs Vital signs: Vital Signs - 8 hr 08/01/19 03:38 08/01/19 04:56 08/01/19 05:25 Temperature 99.0 F Pulse Rate 102 H 78 80 Respiratory Rate 18 14 14 Blood Pressure 122/82 118/80 Blood Pressure [Right Arm] 122/72 Pulse Oximetry 98 97 96 MDM - Headache Lab Data Result diagrams: 08/01/19 03:40 08/01/19 03:40 Labs: Lab Results 08/01/19 08/01/19 Range/Units 03:40 03:40 WBC 8.8 (4.5-11.0) X10^3/uL RBC 4.33 (4.0-5.2) X10^6/uL Hgb 13.6 (12.0-16.0) g/dL Hct 40.2 (36-46) % MCV 92.9 (80-100) fL MCH 31.4 (26-34) PG MCHC 33.8 (30-36) % RDW 12.8 (11.6-14.8) % Plt Count 215 (150-400) X10^3/uL Neut % (Auto) 62.5 (50-75) % Lymph % (Auto) 23.1 L (25-40) % [place] % (Auto) 9.7 (3-14) % Eos % (Auto) 4.0 (2-4) % Baso % (Auto) 0.7 (0-2) % Neut # (Auto) 5500 (5242-5426) /uL Lymph # (Auto) 2000 (7509-9461) /uL [place] # (Auto) 800 (0-900) /uL Eos # (Auto) 300 (0-450) /uL Baso # (Auto) 100 (0-100) /uL Sodium 140 (137-145) mmol/L Potassium 4.0 (3.4-5.1) mmol/L Chloride 104 (98-107) mmol/L Carbon Dioxide 23 (22-32) mmol/L BUN 21 H (7-17) mg/dL Creatinine 0.60 (0.52-1.04) mg/dL Estimated GFR > 60.0 (>60) mL/min BUN/Creatinine Ratio 35.0 H (6-22) Glucose 171 H (70-100) mg/dL Calcium 9.5 (8.4-10.2) mg/dL Discharge Plan Departure Patient Disposition: Home Clinical Impression: Migraine Qualifiers: Migraine type: without aura Status migrainosus presence: without status migrainosus Intractability: not intractable Qualified Code(s): G43.009 - Migraine without aura, not intractable, without status migrainosus Discharge Date/Time: 08/01/19 05:32 Instructions: DI for Migraine Activity Restrictions/Additional Instructions: *You have been diagnosed with [migraine headache] *What to do: *Take medications as directed *Follow up with your primary care provider in 2-3 days, call for an appointment. Let them know you were seen in the Emergency Department and that we ask that you be seen in follow up *Return to ER if you should have any new, worsening or concerning symptoms Prescriptions: No Action vitamin E [Aquasol E (d-alpha tocopherol)] 50 UNIT/1 ML drops Qty: 0 RF: 0 multivitamin [Multiple Vitamins] 1 EACH tablet Qty: 0 RF: 0 [TUMERIC] Qty: 0 RF: 0 diphenoxylate-atropine [Lomotil] 2.5-0.025 mg tablet 1 tab PO Q12H PRN (Reason: diarrhea) Qty: 60 RF: 2 divalproex 500 mg tablet extended release 24 hr 500 mg PO DAILY Qty: 60 RF: 3 metformin 750 mg tablet extended release 24 hr 1,000 mg PO DAILY RF: 0 ascorbate calcium (vitamin C) 500 mg tablet 500 mg PO DAILY RF: 0 calcium 600 mg PO .qday RF: 0 lactobacillus combination no.8 PO .qday RF: 0 fluoxetine PO .Qday RF: 0 omeprazole PO .qday RF: 0 diphenoxylate-atropine 2.5-0.025 mg tablet 1 tab PO BID PRN (Reason: diarrhea) Qty: 60 RF: 0 verapamil 120 mg tablet extended release 120 mg PO BID Qty: 60 RF: 2 Referrals: Alex Warren MD [Primary Care Provider] -
[2019-08-01 03:38] VITALS: BP 122/82; PULSE 102; RESP 18; TEMP 37.2; O2SAT 98
[2019-08-01] MEDS: SODIUM CHLORIDE 0.9% 1,000 ML 1000 ML IV (03:47)
[2019-08-01] MEDS: diphenhydrAMINE 50 MG/ML VIAL 25 MG IV (03:48)
[2019-08-01] MEDS: KETOROLAC 60 MG/2 ML VIAL 15 MG IV (03:48)
[2019-08-01] MEDS: METOCLOPRAMIDE 10 MG/2 ML INJ IV (03:48)
[2019-08-01 03:52] LABS: Add Manual Diff / Slide Review NO; Basophils Absolute Auto 100 /uL (0-100); Basophils Percent Auto 0.7 % (0-2); Eosinophils Absolute Auto 300 /uL (0-450); Hematocrit 40.2 % (36-46); Hemoglobin 13.6 g/dL (12.0-16.0); Lymphocytes Absolute Auto 2000 /uL (1100-4500); Lymphocytes Percent Auto 23.1 % (25-40); Mean Corpuscular HGB Conc 33.8 % (30-36); Mean Corpuscular Hemoglobin 31.4 PG (26-34); Mean Corpuscular Volume 92.9 fL (80-100); Monocytes Absolute Auto 800 /uL (0-900); Monocytes Percent Auto 9.7 % (3-14); Neutrophils Absolute Auto 5500 /uL (1500-7000); Neutrophils Percent Auto 62.5 % (50-75); Platelet Count 215 X10^3/uL (150-400); Red Blood Cell Count 4.33 X10^6/uL (4.0-5.2); Red Cell Distribution Width 12.8 % (11.6-14.8); White Blood Cell Count 8.8 X10^3/uL (4.5-11.0)
[2019-08-01 03:58] LABS: Blood Urea Nitrogen 21 mg/dL (7-17); Calcium 9.5 mg/dL (8.4-10.2); Carbon Dioxide 23 mmol/L (22-32); Chloride 104 mmol/L (98-107); Estimated Glomerular Filt Rate > 60.0 mL/min (>60); Glucose 171 mg/dL (70-100); HEMOLYSIS 16 (0-50); Sodium 140 mmol/L (137-145)
[2019-08-01 04:56] VITALS: BP 122/72; PULSE 78; RESP 14; O2SAT 97
[2019-08-01 05:25] VITALS: BP 118/80; PULSE 80; RESP 14; O2SAT 96
== END 2019-08-01 05:32 | disposition home or self-care (01) ==
PROVIDERS: Emergency Provider Emergency Medicine; PCP Family Medicine
DX: G43.009 Migraine without aura, not intractable, without status migrainosus (principal)
CPT/HCPCS: 36591; 80048; 85025; 96361; 96374; 96375; 99283; 99284; J1200; J1885; J2765

== ENCOUNTER 2019-09-01 14:12 | Emergency (ER) | payer MEDICARE, OTHER, MEDICAID, SELFPAY ==
[2019-09-01 14:29] VITALS: BP 124/78; PULSE 85; RESP 16; TEMP 36.5; O2SAT 98
[2019-09-01 15:06] LABS: RBC Urine None Seen (0-5/HPF)
[2019-09-01 15:07] VITALS: BP 120/70; PULSE 88; RESP 16; O2SAT 99
[2019-09-01 15:14] LABS: Amorphous Sediment Urine 1+; Bacteria Urine Occasional (0-1); Culture Indicated Urine Specimen Cultured; Squamous Epithelial Cell Urine 1-5 /HPF (0-5/HPF); WBC Urine 1-5/HPF (0-5/HPF)
[2019-09-01 16:00] VITALS: BP 95/50; PULSE 79; O2SAT 96
[2019-09-01 16:06] LABS: Add Manual Diff / Slide Review NO; Basophils Absolute Auto 0 /uL (0-100); Basophils Percent Auto 1.1 % (0-2); Eosinophils Absolute Auto 100 /uL (0-450); Eosinophils Percent Auto 2.9 % (2-4); Hematocrit 42.7 % (36-46); Hemoglobin 14.2 g/dL (12.0-16.0); Lymphocytes Absolute Auto 1100 /uL (1100-4500); Lymphocytes Percent Auto 28.4 % (25-40); Mean Corpuscular HGB Conc 33.2 % (30-36); Mean Corpuscular Volume 93.5 fL (80-100); Monocytes Absolute Auto 500 /uL (0-900); Monocytes Percent Auto 12.9 % (3-14); Neutrophils Absolute Auto 2100 /uL (1500-7000); Neutrophils Percent Auto 54.7 % (50-75); Platelet Count 160 X10^3/uL (150-400); Red Blood Cell Count 4.56 X10^6/uL (4.0-5.2); Red Cell Distribution Width 13.4 % (11.6-14.8); White Blood Cell Count 3.8 X10^3/uL (4.5-11.0)
[2019-09-01 16:17] LABS: Alanine Aminotransferase 33 IU/L (9-52); Albumin 4.1 g/dL (3.5-5.0); Albumin Globulin Ratio 1.3 (1.0-2.8); Alkaline Phosphatase 54 U/L (38-126); Aspartate Aminotransferase 43 IU/L (14-36); BUN Creatinine Ratio 26.7 (6-22); Bilirubin Total 0.8 mg/dL (0.2-1.3); Blood Urea Nitrogen 16 mg/dL (7-17); Calcium 9.1 mg/dL (8.4-10.2); Carbon Dioxide 28 mmol/L (22-32); Chloride 103 mmol/L (98-107); Estimated Glomerular Filt Rate > 60.0 mL/min (>60); Globulin 3.1 g/dL (1.7-4.1); Glucose 105 mg/dL (70-100); HEMOLYSIS < 15 (0-50); Lactate (Lactic Acid) 0.9 mmol/L (0.7-2.1); Lipase 35 U/L (23-300); Potassium 4.6 mmol/L (3.4-5.1); Sodium 139 mmol/L (137-145); Total Protein 7.2 g/dL (6.3-8.2)
[2019-09-01 16:59] VITALS: BP 118/48; PULSE 83; O2SAT 100
--- NOTE | 2019-09-01 23:18 | ED_ITS ---
HPI - Abdominal Pain <RICHARD Rowley - Last Filed: 09/01/19 23:33> General Chief Complaint: Abdominal Pain Stated Complaint: abdominal pain Time Seen by Provider: 09/01/19 14:54 Source: patient and family Mode of arrival: Ambulatory Limitations: other (special needs per sister) History of Present Illness HPI narrative: This is a 39-year-old female, nonsmoker, who presents to ED with her sister with chief complain of right-sided abdominal pain for last 3-4 days and diarrhea for 5 times during last 3-4 days. Patient reports bilateral back pain and R>L flank pain without fever, vomiting or nausea. Patient denies unusual vaginal discharge or bleeding. Denies urinary frequency, urgency, dysuria. Patient reports some chills. Patient reports able to tolerate fluids and solid foods without difficulty. The sister states patient is known to have frequent UTI from not wiping from front to back and is currently taking nitrofurantoin 100 mg weekly to prevent UTI. She is on Depo-Provera does not have regular menses. Related Data Home Medications Medication Instructions Recorded Confirmed diphenhydramine HCl [Banophen] 25 mg PO Q8H PRN 09/01/19 09/01/19 divalproex 1,500 mg PO DAILY 09/01/19 09/01/19 fluoxetine 40 mg PO DAILY 09/01/19 09/01/19 metformin 1,000 mg PO BID 09/01/19 09/01/19 nitrofurantoin monohyd/m-cryst 100 mg PO QWEEK 09/01/19 09/01/19 ondansetron 4 mg PO Q6H PRN 09/01/19 09/01/19 Previous Rx's Medication Instructions Recorded diphenoxylate-atropine 2.5 1 tab PO BID PRN #60 tab 04/11/19 mg-0.025 mg tablet cephalexin [Keflex] 500 mg PO Q6H 10 Days #40 cap 09/01/19 Allergies Allergy/AdvReac Type Severity Reaction Status Date / Time niacin Allergy Severe Anaphylaxis Verified 09/01/19 14:32 Review of Systems <RICHARD Rowley - Last Filed: 09/01/19 23:33> Review of Systems Narrative: General: See HPI HEENT: Denies sinus pain, ear pain, sore throat, difficulty swallowing, dizziness. Respiratory: Denies dyspnea, cough, wheezing, hemoptysis, sputum. Cardiovascular: Denies chest pain, palpitations, orthopnea, edema. Gastrointestinal: See HPI : See HPI Musculoskeletal: Denies weakness, joint pain or bony pain. Skin: Denies rash, skin lesions, or other. Neurologic: Denies weakness, headache, numbness, change in speech, confusion, seizures, incoordination. Psychiatric: No concerning psychosocial issues. 12-point review of systems is negative except for those stated above. PFSH <RICHARD Rowley - Last Filed: 09/01/19 23:33> Medical History Developmental delay, moderate (Chronic) Migraines (Chronic) Social History Smoking Status: Never smoker Social History Smoking Status: Never smoker Exam <RICHARD Rowley - Last Filed: 09/01/19 23:33> Narrative Exam Narrative: GEN: Alert, oriented x 3, well appearing and nourished, and in no acute distress. Head: Normal cephalic, atraumatic. No scalp or temporal tenderness, palpable mass or rash. EYES: Pupils are equal, round, and reactive to light and accommodation. Extraocular muscles are intact bilaterally. There is no subconjunctival hemorrhage, exudate and sclera non-icteric. ENT: Hearing grossly intact. Nose without bleeding, purulent discharge or deviation. Mucous membrane moist, no mucosal lesion. Throat without erythema, tonsillar hypertrophy or exudate. Uvula in midline, airway patent. Neck: Trachea in midline. No JVD, non-tender without lymphadenopathy. No masses or thyroid megaly. Supple, non-tender and no meningeal signs. CARDIAC: Normal regular rate and rhythm without murmurs, gallops, or rubs. No chest wall tenderness. No peripheral edema, cyanosis or pallor. Capillary refill is less than 2 seconds. RESPIRATORY: Lungs are cleat to auscultate bilaterally. No cough, wheezes, rales, or rhonchi. No stridor, respiratory distress, increase work of breathing, or accessary muscle used. ABD: Abdomen soft, nontender and non-distended. No guarding or rebound tenderness to palpate. Bowel sounds are normal in all 4 quadrants. There is no palpable masses or organomegaly. EXT: Full painless ROM of all extremities with no loss of sensation, strength, effusion or edema. SKIN: Warm, dry, normal color for patient. No erythema, lesions or rash over visible areas. BACK: Nontender without deformity or crepitance. Right flank tenderness to percuss. NEUROLOGICAL: Alert and oriented to place, time and person. Sensation and motor function intact bilaterally. No facial droops, dysphasia. PSYCHIATRIC: Good judgement and reason, without hallucinations, abnormal affect or abnormal behaviors during the examination. Initial Vital Signs Initial Vital Signs: Vital Signs Temperature 97.7 F 09/01/19 14:29 Pulse Rate 85 09/01/19 14:29 Respiratory Rate 16 09/01/19 14:29 Blood Pressure 124/78 09/01/19 14:29 Pulse Oximetry 98 09/01/19 14:29 <Kimberly Bateman DO - Last Filed: 09/02/19 08:34> Initial Vital Signs Initial Vital Signs: Vital Signs Temperature 97.7 F 09/01/19 14:29 Pulse Rate 85 09/01/19 14:29 Respiratory Rate 16 09/01/19 14:29 Blood Pressure 124/78 09/01/19 14:29 Pulse Oximetry 98 09/01/19 14:29 Course <RICHARD Rowley - Last Filed: 09/01/19 23:33> Orders Ordered: ED Orders 09/01/19 14:20 Urine Culture Stat Urine Microscopic Stat 09/01/19 15:57 Complete Blood Count AUTO DIFF Stat Comprehensive Metabolic Panel Stat Lactate (Lactic Acid) Stat Lipase Stat Vital Signs Vital signs: Vital Signs - 8 hr 09/01/19 16:00 09/01/19 16:59 Pulse Rate 79 83 Blood Pressure 118/48 L Blood Pressure [Right Arm] 95/50 L Pulse Oximetry 96 100 <Kimberly Bateman DO - Last Filed: 09/02/19 08:34> Orders Ordered: ED Orders 09/01/19 14:20 Urine Culture Stat Urine Microscopic Stat 09/01/19 15:57 Complete Blood Count AUTO DIFF Stat Comprehensive Metabolic Panel Stat Lactate (Lactic Acid) Stat Lipase Stat Vital Signs Vital signs: Vital Signs - 8 hr 09/01/19 16:00 09/01/19 16:59 Pulse Rate 79 83 Blood Pressure 118/48 L Blood Pressure [Right Arm] 95/50 L Pulse Oximetry 96 100 MDM - Abdominal Pain <Jayesh RICHARD Ceballos - Last Filed: 09/01/19 23:33> Differential Diagnosis Differential diagnosis: Likely abdominal pain, acute appendicitis and other (Kidney infection, UTI) Medical Records Attestation: I reviewed the patient's medical records. Lab Data Attestation: I reviewed the patient's lab results. Result diagrams: 09/01/19 15:57 09/01/19 15:57 Labs: Lab Results 09/01/19 09/01/19 09/01/19 Range/Units 14:20 15:57 15:57 WBC 3.8 L (4.5-11.0) X10^3/uL RBC 4.56 (4.0-5.2) X10^6/uL Hgb 14.2 (12.0-16.0) g/dL Hct 42.7 (36-46) % MCV 93.5 (80-100) fL MCH 31.0 (26-34) PG MCHC 33.2 (30-36) % RDW 13.4 (11.6-14.8) % Plt Count 160 (150-400) X10^3/uL Neut % (Auto) 54.7 (50-75) % Lymph % (Auto) 28.4 (25-40) % [place] % (Auto) 12.9 (3-14) % Eos % (Auto) 2.9 (2-4) % Baso % (Auto) 1.1 (0-2) % Neut # (Auto) 2100 (2412-6643) /uL Lymph # (Auto) 1100 (7879-4323) /uL [place] # (Auto) 500 (0-900) /uL Eos # (Auto) 100 (0-450) /uL Baso # (Auto) 0 (0-100) /uL Sodium 139 (137-145) mmol/L Potassium 4.6 (3.4-5.1) mmol/L Chloride 103 (98-107) mmol/L Carbon Dioxide 28 (22-32) mmol/L BUN 16 (7-17) mg/dL Creatinine 0.60 (0.52-1.04) mg/dL Estimated GFR > 60.0 (>60) mL/min BUN/Creatinine Ratio 26.7 H (6-22) Glucose 105 H (70-100) mg/dL Lactate (0.7-2.1) mmol/L Calcium 9.1 (8.4-10.2) mg/dL Total Bilirubin 0.8 (0.2-1.3) mg/dL AST 43 H (14-36) IU/L ALT 33 (9-52) IU/L Alkaline Phosphatase 54 (38-126) U/L Total Protein 7.2 (6.3-8.2) g/dL Albumin 4.1 (3.5-5.0) g/dL Globulin 3.1 (1.7-4.1) g/dL Albumin/Globulin Ratio 1.3 (1.0-2.8) Lipase 35 (23-300) U/L Urine RBC None seen (0-5/HPF) Urine WBC 1-5/hpf (0-5/HPF) Ur Squamous Epith Cells 1-5 /hpf (0-5/HPF) Amorphous Sediment 1+ Urine Bacteria Occasional (0-1) (None) Ur Culture Indicated? Specimen cultured 09/01/19 Range/Units 15:57 WBC (4.5-11.0) X10^3/uL RBC (4.0-5.2) X10^6/uL Hgb (12.0-16.0) g/dL Hct (36-46) % MCV (80-100) fL MCH (26-34) PG MCHC (30-36) % RDW (11.6-14.8) % Plt Count (150-400) X10^3/uL Neut % (Auto) (50-75) % Lymph % (Auto) (25-40) % [place] % (Auto) (3-14) % Eos % (Auto) (2-4) % Baso % (Auto) (0-2) % Neut # (Auto) (2918-0442) /uL Lymph # (Auto) (7615-6013) /uL [place] # (Auto) (0-900) /uL Eos # (Auto) (0-450) /uL Baso # (Auto) (0-100) /uL Sodium (137-145) mmol/L Potassium (3.4-5.1) mmol/L Chloride (98-107) mmol/L Carbon Dioxide (22-32) mmol/L BUN (7-17) mg/dL Creatinine (0.52-1.04) mg/dL Estimated GFR (>60) mL/min BUN/Creatinine Ratio (6-22) Glucose (70-100) mg/dL Lactate 0.9 (0.7-2.1) mmol/L Calcium (8.4-10.2) mg/dL Total Bilirubin (0.2-1.3) mg/dL AST (14-36) IU/L ALT (9-52) IU/L Alkaline Phosphatase (38-126) U/L Total Protein (6.3-8.2) g/dL Albumin (3.5-5.0) g/dL Globulin (1.7-4.1) g/dL Albumin/Globulin Ratio (1.0-2.8) Lipase (23-300) U/L Urine RBC (0-5/HPF) Urine WBC (0-5/HPF) Ur Squamous Epith Cells (0-5/HPF) Amorphous Sediment Urine Bacteria (None) Ur Culture Indicated? Point of care testing: Point of Care Testing Test Results Negative Urine Dip Bedside Urine Glucose Negative Bedside Urine Bilirubin - Negative Bedside Urine Ketone + 15 Urine Specific [place] 1.015 Bedside Urine Occult Blood - Negative Bedside Urine pH 7.0 Bedside Urine Protein - Negative Bedside Urine Urobilinogen +/- 1mg Bedside Urine Nitrite - Negative Bedside Urine Leukocytes +/- 15 Esterase MDM Narrative Medical decision making narrative: This is a 39-year-old female with right-sided abdominal pain and several diarrheas for last 3-4 days. Patient is known to have frequent UTI and she is currently on prophylactic nitrofurantoin weekly dose. Patient's sister assist and mostly provided patient's medical history and chief complain. Patient's physical exam showed soft abdomen without rebound tenderness and flank pain with percussion. Patient was afebrile with normal blood pressure and heart rate. There was no leukocytosis. Chemistry test was unremarkable. Lactate was negative. Urine test showed small amount of leukocytes and WBC and occasional bacteria. Urine is being cultured at this time and patient is being treated for UTI and early pyelonephritis with Keflex 10 day course of q.i.d. dose which may cause by diarrheal episodes. Return precautions were discussed with the patient and advised to follow up with PCP next week. Patient and sister verbalized understanding and agree with treatment plan. Patient advised to use the hygiene techniques to prevent frequent UTIs and to increase oral hydration. <Kimberly Bateman DO - Last Filed: 09/02/19 08:34> Lab Data Labs: Lab Results 09/01/19 09/01/19 09/01/19 Range/Units 14:20 15:57 15:57 WBC 3.8 L (4.5-11.0) X10^3/uL RBC 4.56 (4.0-5.2) X10^6/uL Hgb 14.2 (12.0-16.0) g/dL Hct 42.7 (36-46) % MCV 93.5 (80-100) fL MCH 31.0 (26-34) PG MCHC 33.2 (30-36) % RDW 13.4 (11.6-14.8) % Plt Count 160 (150-400) X10^3/uL Neut % (Auto) 54.7 (50-75) % Lymph % (Auto) 28.4 (25-40) % [place] % (Auto) 12.9 (3-14) % Eos % (Auto) 2.9 (2-4) % Baso % (Auto) 1.1 (0-2) % Neut # (Auto) 2100 (5977-2838) /uL Lymph # (Auto) 1100 (6866-9751) /uL [place] # (Auto) 500 (0-900) /uL Eos # (Auto) 100 (0-450) /uL Baso # (Auto) 0 (0-100) /uL Sodium 139 (137-145) mmol/L Potassium 4.6 (3.4-5.1) mmol/L Chloride 103 (98-107) mmol/L Carbon Dioxide 28 (22-32) mmol/L BUN 16 (7-17) mg/dL Creatinine 0.60 (0.52-1.04) mg/dL Estimated GFR > 60.0 (>60) mL/min BUN/Creatinine Ratio 26.7 H (6-22) Glucose 105 H (70-100) mg/dL Lactate (0.7-2.1) mmol/L Calcium 9.1 (8.4-10.2) mg/dL Total Bilirubin 0.8 (0.2-1.3) mg/dL AST 43 H (14-36) IU/L ALT 33 (9-52) IU/L Alkaline Phosphatase 54 (38-126) U/L Total Protein 7.2 (6.3-8.2) g/dL Albumin 4.1 (3.5-5.0) g/dL Globulin 3.1 (1.7-4.1) g/dL Albumin/Globulin Ratio 1.3 (1.0-2.8) Lipase 35 (23-300) U/L Urine RBC None seen (0-5/HPF) Urine WBC 1-5/hpf (0-5/HPF) Ur Squamous Epith Cells 1-5 /hpf (0-5/HPF) Amorphous Sediment 1+ Urine Bacteria Occasional (0-1) (None) Ur Culture Indicated? Specimen cultured 09/01/19 Range/Units 15:57 WBC (4.5-11.0) X10^3/uL RBC (4.0-5.2) X10^6/uL Hgb (12.0-16.0) g/dL Hct (36-46) % MCV (80-100) fL MCH (26-34) PG MCHC (30-36) % RDW (11.6-14.8) % Plt Count (150-400) X10^3/uL Neut % (Auto) (50-75) % Lymph % (Auto) (25-40) % [place] % (Auto) (3-14) % Eos % (Auto) (2-4) % Baso % (Auto) (0-2) % Neut # (Auto) (2749-7962) /uL Lymph # (Auto) (1709-8109) /uL [place] # (Auto) (0-900) /uL Eos # (Auto) (0-450) /uL Baso # (Auto) (0-100) /uL Sodium (137-145) mmol/L Potassium (3.4-5.1) mmol/L Chloride (98-107) mmol/L Carbon Dioxide (22-32) mmol/L BUN (7-17) mg/dL Creatinine (0.52-1.04) mg/dL Estimated GFR (>60) mL/min BUN/Creatinine Ratio (6-22) Glucose (70-100) mg/dL Lactate 0.9 (0.7-2.1) mmol/L Calcium (8.4-10.2) mg/dL Total Bilirubin (0.2-1.3) mg/dL AST (14-36) IU/L ALT (9-52) IU/L Alkaline Phosphatase (38-126) U/L Total Protein (6.3-8.2) g/dL Albumin (3.5-5.0) g/dL Globulin (1.7-4.1) g/dL Albumin/Globulin Ratio (1.0-2.8) Lipase (23-300) U/L Urine RBC (0-5/HPF) Urine WBC (0-5/HPF) Ur Squamous Epith Cells (0-5/HPF) Amorphous Sediment Urine Bacteria (None) Ur Culture Indicated? Point of care testing: Point of Care Testing Test Results Negative Urine Dip Bedside Urine Glucose Negative Bedside Urine Bilirubin - Negative Bedside Urine Ketone + 15 Urine Specific [place] 1.015 Bedside Urine Occult Blood - Negative Bedside Urine pH 7.0 Bedside Urine Protein - Negative Bedside Urine Urobilinogen +/- 1mg Bedside Urine Nitrite - Negative Bedside Urine Leukocytes +/- 15 Esterase Discharge Plan Departure Patient Disposition: Home Clinical Impression: Infection of kidney Discharge Date/Time: 09/01/19 17:00 Instructions: DI for Kidney Infection Activity Restrictions/Additional Instructions: You have been diagnosed with [kidney infection]. What to do: *Take your medications as directed. Please start taking Keflex 4 times a day for next 10 days for bladder/kidney infection. [facility]. Please increase your hydration and methods to prevent further kidney infection as in discharge instruction. Follow up with your primary care provider in 2-3 days, call for an appointment. Let them know you were seen in the ED and that we asked you to be seen in follow up. *Return to ED if you have any new, worsening, or concerning symptoms, such as [flank pain, chills, fever, unable to tolerate fluids, feeling like fainting, chest pain, breathing difficulty, or any acute concerns]. Prescriptions: New cephalexin [Keflex] 500 mg capsule 500 mg PO Q6H 10 Days Qty: 40 RF: 0 No Action fluoxetine 40 mg capsule 40 mg PO DAILY RF: 0 metformin 1,000 mg tablet 1,000 mg PO BID RF: 0 nitrofurantoin monohyd/m-cryst 100 mg capsule 100 mg PO QWEEK RF: 0 divalproex 500 mg tablet extended release 24 hr 1,500 mg PO DAILY RF: 0 diphenhydramine HCl [Banophen] 25 mg capsule 25 mg PO Q8H PRN (Reason: Allergic Reaction) RF: 0 ondansetron 4 mg tablet,disintegrating 4 mg PO Q6H PRN (Reason: Nausea) RF: 0 diphenoxylate-atropine 2.5-0.025 mg tablet 1 tab PO BID PRN (Reason: diarrhea) Qty: 60 RF: 0 Referrals: Alex Warren MD [Primary Care Provider] -
== END 2019-09-01 17:00 | disposition home or self-care (01) ==
PROVIDERS: Emergency Provider Nurse Practitioner Family; PCP Family Medicine
DX: N15.9 Renal tubulo-interstitial disease, unspecified (principal)
CPT/HCPCS: 36415; 80053; 81003; 81015; 81025; 83605; 83690; 85025; 87086; 99283

== ENCOUNTER 2019-09-24 11:41 | Emergency (ER) | payer MEDICARE, MEDICAID, SELFPAY ==
[2019-09-24 11:57] VITALS: BP 120/83; PULSE 88; RESP 16; TEMP 36.8; O2SAT 99; BMI 37.7
[2019-09-24 12:15] LABS: RBC Urine None Seen (0-5/HPF)
[2019-09-24 12:23] LABS: Prothrombin Time 11.9 SECONDS (10.1-12.7)
[2019-09-24 12:25] LABS: Add Manual Diff / Slide Review NO; Basophils Absolute Auto 100 /uL (0-100); Basophils Percent Auto 1.7 % (0-2); Eosinophils Absolute Auto 200 /uL (0-450); Eosinophils Percent Auto 4.3 % (2-4); Hemoglobin 14.5 g/dL (12.0-16.0); Lymphocytes Absolute Auto 1500 /uL (1100-4500); Mean Corpuscular HGB Conc 34.6 % (30-36); Mean Corpuscular Hemoglobin 31.8 PG (26-34); Mean Corpuscular Volume 92.1 fL (80-100); Monocytes Absolute Auto 400 /uL (0-900); Monocytes Percent Auto 9.2 % (3-14); Neutrophils Absolute Auto 2500 /uL (1500-7000); Neutrophils Percent Auto 52.8 % (50-75); PTT Partial Thromboplastin Tim 34 SECONDS (26.4-36.2); Platelet Count 160 X10^3/uL (150-400); Red Blood Cell Count 4.56 X10^6/uL (4.0-5.2); Red Cell Distribution Width 13.2 % (11.6-14.8); White Blood Cell Count 4.7 X10^3/uL (4.5-11.0)
[2019-09-24 12:28] LABS: Alanine Aminotransferase 22 IU/L (9-52); Albumin 4.6 g/dL (3.5-5.0); Albumin Globulin Ratio 1.5 (1.0-2.8); Alkaline Phosphatase 55 U/L (38-126); Aspartate Aminotransferase 27 IU/L (14-36); Bilirubin Total 0.7 mg/dL (0.2-1.3); Blood Urea Nitrogen 15 mg/dL (7-17); Calcium 9.6 mg/dL (8.4-10.2); Carbon Dioxide 26 mmol/L (22-32); Chloride 102 mmol/L (98-107); Estimated Glomerular Filt Rate > 60.0 mL/min (>60); Globulin 3.1 g/dL (1.7-4.1); Glucose 109 mg/dL (70-100); HEMOLYSIS < 15 (0-50); Lipase 62 U/L (23-300); Potassium 3.9 mmol/L (3.4-5.1); Sodium 140 mmol/L (137-145); Total Protein 7.7 g/dL (6.3-8.2)
[2019-09-24 12:30] LABS: Amorphous Sediment Urine 1+; Bacteria Urine Few (2-10); Culture Indicated Urine Specimen Cultured; Mucus Urine 1+ (Negative); Squamous Epithelial Cell Urine 1-5 /HPF (0-5/HPF); WBC Urine 5-10/HPF (0-5/HPF)
[2019-09-24 13:00] VITALS: BP 122/91; PULSE 79; RESP 17; O2SAT 99
[2019-09-24 13:30] VITALS: BP 114/80; PULSE 74; RESP 15; O2SAT 96
[2019-09-24] MEDS: PANTOPRAZOLE 40 MG VIAL IV (13:53)
[2019-09-24] MEDS: MAG HYDROX/ALUMINUM/SIMETH SUS 20 ML, LIDOCAINE VISCOUS 2% 15 ML PO (13:53)
--- NOTE | 2019-09-24 15:38 | ED_ITS ---
HPI - Abdominal Pain <RICHARD Rowley - Last Filed: 09/24/19 22:02> General Chief Complaint: Abdominal Pain Stated Complaint: Abd pain Time Seen by Provider: 09/24/19 12:16 Source: patient and family Mode of arrival: Family Vehicle Limitations: other History of Present Illness HPI narrative: This is a 39-year-old female, nonsmoker, history of developmental delayed who presents to ED with the sister with chief complain of mid upper abdominal pain and right quadrant pain for last couple of days. Patient denies fever, chills, nausea or vomiting. Patient has a history of chronic UTI and is currently on prevention treatment with nitrofurantoin 100 mg weekly. Patient had loose stool yesterday and this is not too abnormal for patient and takes Lomotil as needed. Patient is currently being followed up by her primary care physician for similar discomfort and diagnosed with gastritis and was instructed to stay on a bland diet. Patient has mildly decreased appetite. Patient denies urinary symptoms, suprapubic pain, pelvic pain, or flank pain. Related Data Home Medications Medication Instructions Recorded Confirmed diphenhydramine HCl [Banophen] 25 mg PO Q8H PRN 09/01/19 09/01/19 divalproex 1,500 mg PO DAILY 09/01/19 09/01/19 fluoxetine 40 mg PO DAILY 09/01/19 09/01/19 metformin 1,000 mg PO BID 09/01/19 09/01/19 nitrofurantoin monohyd/m-cryst 100 mg PO QWEEK 09/01/19 09/01/19 ondansetron 4 mg PO Q6H PRN 09/01/19 09/01/19 Previous Rx's Medication Instructions Recorded diphenoxylate-atropine 2.5 1 tab PO BID PRN #60 tab 04/11/19 mg-0.025 mg tablet omeprazole 20 mg PO DAILY #14 cap 09/24/19 Allergies Allergy/AdvReac Type Severity Reaction Status Date / Time niacin Allergy Severe Anaphylaxis Verified 09/24/19 12:05 Review of Systems <RICHARD Rowley - Last Filed: 09/24/19 22:02> Review of Systems Narrative: General: Denies fever, chills, fatigue, malaise, sweats. HEENT: Denies sinus pain, ear pain, sore throat, difficulty swallowing, dizziness. Respiratory: Denies dyspnea, cough, wheezing, hemoptysis, sputum. Cardiovascular: Denies chest pain, palpitations, orthopnea, edema. Gastrointestinal: See HPI : Denies dysuria, frequency, incontinence, hematuria, urinary retention. Musculoskeletal: Denies weakness, joint pain or bony pain. Skin: Denies rash, skin lesions, or other. Neurologic: Denies weakness, headache, numbness, change in speech, confusion, seizures, incoordination. Psychiatric: No concerning psychosocial issues. 12-point review of systems is negative except for those stated above. Patient History <RICHARD Rowley - Last Filed: 09/24/19 22:02> Medical History Developmental delay, moderate (Chronic) Migraines (Chronic) Social History marital status: unmarried,single Smoking Status: Never smoker alcohol intake frequency: 0-2 drinks per day Substance Use Type: does not use Exam <RICHARD Rowley - Last Filed: 09/24/19 22:02> Narrative Exam Narrative: GEN: Alert, oriented x 3, well appearing and nourished, and in no acute distress. Head: Normal cephalic, atraumatic. No scalp or temporal tenderness, palpable mass or rash. EYES: Pupils are equal, round, and reactive to light and accommodation. Extraocular muscles are intact bilaterally. There is no subconjunctival hemorrhage, exudate and sclera non-icteric. ENT: Bilateral auditory canals and tympanic membranes clear. Hearing grossly intact. Nose without bleeding, purulent discharge or deviation. Facial sinuses nontender to palpate. Mucous membrane moist, no mucosal lesion. Throat without erythema, tonsillar hypertrophy or exudate. Uvula in midline, airway patent. Neck: Trachea in midline. No JVD, non-tender without lymphadenopathy. No masses or thyroid megaly. Supple, non-tender and no meningeal signs. CARDIAC: Normal regular rate and rhythm without murmurs, gallops, or rubs. No chest wall tenderness. No peripheral edema, cyanosis or pallor. Capillary refill is less than 2 seconds. RESPIRATORY: Lungs are clear to auscultate bilaterally. No cough, wheezes, r ales, or rhonchi. No stridor, respiratory distress, increase work of breathing, or accessary muscle used. ABD: Mild discomfort to palpate in right quadrant and upper mid abdomen. Abdomen soft and non-distended. No guarding or rebound tenderness to palpate. Bowel sounds are normal in all 4 quadrants. There is no palpable masses or organomegaly. EXT: Full painless ROM of all extremities with no loss of sensation, strength, effusion or edema. SKIN: Warm, dry, normal color for patient. No erythema, lesions or rash over visible areas. BACK: Nontender without deformity or crepitance. No flank tenderness. NEUROLOGICAL: Alert and oriented to place, time and person. Sensation and motor function intact bilaterally. No facial droops, dysphasia. PSYCHIATRIC: Good judgement and reason, without hallucinations, abnormal affect or abnormal behaviors during the examination. Initial Vital Signs Initial Vital Signs: Vital Signs Temperature 98.3 F 09/24/19 11:57 Pulse Rate 88 09/24/19 11:57 Respiratory Rate 16 09/24/19 11:57 Blood Pressure 120/83 09/24/19 11:57 Pulse Oximetry 99 09/24/19 11:57 <Leta Reis DO - Last Filed: 09/29/19 18:06> Initial Vital Signs Initial Vital Signs: Vital Signs Temperature 98.3 F 09/24/19 11:57 Pulse Rate 88 09/24/19 11:57 Respiratory Rate 16 09/24/19 11:57 Blood Pressure 120/83 09/24/19 11:57 Pulse Oximetry 99 09/24/19 11:57 Scores <RICHARD Rowley - Last Filed: 09/24/19 22:02> GCS Nidhi coma scale eye opening: Spontaneous Nidhi coma scale verbal response: Orientated [place] coma scale motor response: Obey commands Nidhi coma scale total score: 15 Course <RICHARD Rowley - Last Filed: 09/24/19 22:02> Orders Ordered: Discontinued Medications Al Hydrox/Mg Hydrox/Simethicone 20 ml/ Lidocaine HCl 15 ml 0 ml PO NOW ONE Stop: 09/24/19 12:57 Last Admin: 09/24/19 13:53 Dose: 20 ml Documented by: CSIEDLE Pantoprazole Sodium (Protonix) 40 mg IV NOW ONE Stop: 09/24/19 12:57 Last Admin: 09/24/19 13:53 Dose: 40 mg Documented by: JENS Vital Signs Vital signs: Vital Signs - 8 hr 09/24/19 15:40 Pulse Rate 78 Respiratory Rate 16 Blood Pressure 116/70 Pulse Oximetry 97 <Leta Reis DO - Last Filed: 09/29/19 18:06> Orders Ordered: Discontinued Medications Al Hydrox/Mg Hydrox/Simethicone 20 ml/ Lidocaine HCl 15 ml 0 ml PO NOW ONE Stop: 09/24/19 12:57 Last Admin: 09/24/19 13:53 Dose: 20 ml Documented by: JENS Pantoprazole Sodium (Protonix) 40 mg IV NOW ONE Stop: 09/24/19 12:57 Last Admin: 09/24/19 13:53 Dose: 40 mg Documented by: JENS Vital Signs Vital signs: Vital Signs - 8 hr 09/24/19 15:40 Pulse Rate 78 Respiratory Rate 16 Blood Pressure 116/70 Pulse Oximetry 97 MDM - Abdominal Pain <RICHARD Rowley - Last Filed: 09/24/19 22:02> Differential Diagnosis Differential diagnosis: Likely abdominal pain and other (GERD, gastric ulcer, bladder infection) Medical Records Attestation: I reviewed the patient's medical records. Lab Data Attestation: I reviewed the patient's lab results. Result diagrams: 09/24/19 12:11 09/24/19 12:11 Labs: Lab Results 09/24/19 09/24/19 09/24/19 Range/Units 11:54 12:11 12:11 WBC 4.7 (4.5-11.0) X10^3/uL RBC 4.56 (4.0-5.2) X10^6/uL Hgb 14.5 (12.0-16.0) g/dL Hct 42.0 (36-46) % MCV 92.1 (80-100) fL MCH 31.8 (26-34) PG MCHC 34.6 (30-36) % RDW 13.2 (11.6-14.8) % Plt Count 160 (150-400) X10^3/uL Neut % (Auto) 52.8 (50-75) % Lymph % (Auto) 32.0 (25-40) % [place] % (Auto) 9.2 (3-14) % Eos % (Auto) 4.3 H (2-4) % Baso % (Auto) 1.7 (0-2) % Neut # (Auto) 2500 (0599-4411) /uL Lymph # (Auto) 1500 (0768-1321) /uL [place] # (Auto) 400 (0-900) /uL Eos # (Auto) 200 (0-450) /uL Baso # (Auto) 100 (0-100) /uL PT 11.9 (10.1-12.7) SECONDS INR 1.0 (0.9-1.3) APTT 34 (26.4-36.2) SECONDS Sodium (137-145) mmol/L Potassium (3.4-5.1) mmol/L Chloride (98-107) mmol/L Carbon Dioxide (22-32) mmol/L BUN (7-17) mg/dL Creatinine (0.52-1.04) mg/dL Estimated GFR (>60) mL/min BUN/Creatinine Ratio (6-22) Glucose (70-100) mg/dL Calcium (8.4-10.2) mg/dL Total Bilirubin (0.2-1.3) mg/dL AST (14-36) IU/L ALT (9-52) IU/L Alkaline Phosphatase (38-126) U/L Total Protein (6.3-8.2) g/dL Albumin (3.5-5.0) g/dL Globulin (1.7-4.1) g/dL Albumin/Globulin Ratio (1.0-2.8) Lipase (23-300) U/L Urine RBC None seen (0-5/HPF) Urine WBC 5-10/hpf H (0-5/HPF) Ur Squamous Epith Cells 1-5 /hpf (0-5/HPF) Amorphous Sediment 1+ Urine Bacteria Few (2-10) H (None) Urine Mucus 1+ H (Negative) Ur Culture Indicated? Specimen cultured 09/24/19 Range/Units 12:11 WBC (4.5-11.0) X10^3/uL RBC (4.0-5.2) X10^6/uL Hgb (12.0-16.0) g/dL Hct (36-46) % MCV (80-100) fL MCH (26-34) PG MCHC (30-36) % RDW (11.6-14.8) % Plt Count (150-400) X10^3/uL Neut % (Auto) (50-75) % Lymph % (Auto) (25-40) % [place] % (Auto) (3-14) % Eos % (Auto) (2-4) % Baso % (Auto) (0-2) % Neut # (Auto) (6898-6519) /uL Lymph # (Auto) (6641-2637) /uL [place] # (Auto) (0-900) /uL Eos # (Auto) (0-450) /uL Baso # (Auto) (0-100) /uL PT (10.1-12.7) SECONDS INR (0.9-1.3) APTT (26.4-36.2) SECONDS Sodium 140 (137-145) mmol/L Potassium 3.9 (3.4-5.1) mmol/L Chloride 102 (98-107) mmol/L Carbon Dioxide 26 (22-32) mmol/L BUN 15 (7-17) mg/dL Creatinine 0.60 (0.52-1.04) mg/dL Estimated GFR > 60.0 (>60) mL/min BUN/Creatinine Ratio 25.0 H (6-22) Glucose 109 H (70-100) mg/dL Calcium 9.6 (8.4-10.2) mg/dL Total Bilirubin 0.7 (0.2-1.3) mg/dL AST 27 (14-36) IU/L ALT 22 (9-52) IU/L Alkaline Phosphatase 55 (38-126) U/L Total Protein 7.7 (6.3-8.2) g/dL Albumin 4.6 (3.5-5.0) g/dL Globulin 3.1 (1.7-4.1) g/dL Albumin/Globulin Ratio 1.5 (1.0-2.8) Lipase 62 (23-300) U/L Urine RBC (0-5/HPF) Urine WBC (0-5/HPF) Ur Squamous Epith Cells (0-5/HPF) Amorphous Sediment Urine Bacteria (None) Urine Mucus (Negative) Ur Culture Indicated? Point of care testing: Point of Care Testing Test Results Negative Urine Dip Bedside Urine Glucose 100 mg/dl Bedside Urine Bilirubin - Negative Bedside Urine Ketone +/- 5 Urine Specific [place] 1.015 Bedside Urine Occult Blood - Negative Bedside Urine pH 6.5 Bedside Urine Protein +/- 15 Bedside Urine Urobilinogen +/- 1mg Bedside Urine Nitrite - Negative Bedside Urine Leukocytes ++ 125 Esterase ECG Data Attestation: I personally reviewed and interpreted this ECG as follows: Prior ECG tracings: available for review Interpretation: SR rate at 79. Incomplete RBB R anterior fascicular block. Possibly old anterior NV Q wave in V3/V4. No changes from the previous EKG. MDM Narrative Medical decision making narrative: This is a 39-year-old female who presents with her sister with chief complain of mid upper region and right quadrant abdominal discomfort without constitutional symptoms. Patient is able to john ate fluids and food without nausea or vomiting. Patient has frequent chronic UTI and is on weekly regimen of nitrofurantoin. Patient has a history of developmental delay and her sister helps with medical history. Abdominal physical exam is not consistent with appendicitis. Patient had mild tenderness to palpate in mid upper abdomen and right quadrant pain without rebound tenderness or guarding. Lab tests were unremarkable including CBC and chemistry. Patient's urine showed ++ urine leukocytes esterase without nitrite. Micro urine test showed some urine mucus with WBC and bacteria and it is being cultured at this time. In the past, 3 urine culture shows 3+/- gram positive and negative skin [place]ino. Patient was treated with GI cocktail and pantoprazole with minimal improvement. Findings were discussed with the patient and sister. Patient advised to stay on a bland diet and discharged to home with omeprazole. Return precautions were discussed with the patient and sister. Patient has recurring abdominal pain, will consider imaging test during next visit. Patient and sister verbalized understanding and no further questions were expressed at this time. <Leta Reis, DO - Last Filed: 09/29/19 18:06> Lab Data Labs: Lab Results 09/24/19 09/24/19 09/24/19 Range/Units 11:54 12:11 12:11 WBC 4.7 (4.5-11.0) X10^3/uL RBC 4.56 (4.0-5.2) X10^6/uL Hgb 14.5 (12.0-16.0) g/dL Hct 42.0 (36-46) % MCV 92.1 (80-100) fL MCH 31.8 (26-34) PG MCHC 34.6 (30-36) % RDW 13.2 (11.6-14.8) % Plt Count 160 (150-400) X10^3/uL Neut % (Auto) 52.8 (50-75) % Lymph % (Auto) 32.0 (25-40) % [place] % (Auto) 9.2 (3-14) % Eos % (Auto) 4.3 H (2-4) % Baso % (Auto) 1.7 (0-2) % Neut # (Auto) 2500 (0632-2401) /uL Lymph # (Auto) 1500 (4301-4526) /uL [place] # (Auto) 400 (0-900) /uL Eos # (Auto) 200 (0-450) /uL Baso # (Auto) 100 (0-100) /uL PT 11.9 (10.1-12.7) SECONDS INR 1.0 (0.9-1.3) APTT 34 (26.4-36.2) SECONDS Sodium (137-145) mmol/L Potassium (3.4-5.1) mmol/L Chloride (98-107) mmol/L Carbon Dioxide (22-32) mmol/L BUN (7-17) mg/dL Creatinine (0.52-1.04) mg/dL Estimated GFR (>60) mL/min BUN/Creatinine Ratio (6-22) Glucose (70-100) mg/dL Calcium (8.4-10.2) mg/dL Total Bilirubin (0.2-1.3) mg/dL AST (14-36) IU/L ALT (9-52) IU/L Alkaline Phosphatase (38-126) U/L Total Protein (6.3-8.2) g/dL Albumin (3.5-5.0) g/dL Globulin (1.7-4.1) g/dL Albumin/Globulin Ratio (1.0-2.8) Lipase (23-300) U/L Urine RBC None seen (0-5/HPF) Urine WBC 5-10/hpf H (0-5/HPF) Ur Squamous Epith Cells 1-5 /hpf (0-5/HPF) Amorphous Sediment 1+ Urine Bacteria Few (2-10) H (None) Urine Mucus 1+ H (Negative) Ur Culture Indicated? Specimen cultured 09/24/19 Range/Units 12:11 WBC (4.5-11.0) X10^3/uL RBC (4.0-5.2) X10^6/uL Hgb (12.0-16.0) g/dL Hct (36-46) % MCV (80-100) fL MCH (26-34) PG MCHC (30-36) % RDW (11.6-14.8) % Plt Count (150-400) X10^3/uL Neut % (Auto) (50-75) % Lymph % (Auto) (25-40) % [place] % (Auto) (3-14) % Eos % (Auto) (2-4) % Baso % (Auto) (0-2) % Neut # (Auto) (4414-1386) /uL Lymph # (Auto) (3598-6395) /uL [place] # (Auto) (0-900) /uL Eos # (Auto) (0-450) /uL Baso # (Auto) (0-100) /uL PT (10.1-12.7) SECONDS INR (0.9-1.3) APTT (26.4-36.2) SECONDS Sodium 140 (137-145) mmol/L Potassium 3.9 (3.4-5.1) mmol/L Chloride 102 (98-107) mmol/L Carbon Dioxide 26 (22-32) mmol/L BUN 15 (7-17) mg/dL Creatinine 0.60 (0.52-1.04) mg/dL Estimated GFR > 60.0 (>60) mL/min BUN/Creatinine Ratio 25.0 H (6-22) Glucose 109 H (70-100) mg/dL Calcium 9.6 (8.4-10.2) mg/dL Total Bilirubin 0.7 (0.2-1.3) mg/dL AST 27 (14-36) IU/L ALT 22 (9-52) IU/L Alkaline Phosphatase 55 (38-126) U/L Total Protein 7.7 (6.3-8.2) g/dL Albumin 4.6 (3.5-5.0) g/dL Globulin 3.1 (1.7-4.1) g/dL Albumin/Globulin Ratio 1.5 (1.0-2.8) Lipase 62 (23-300) U/L Urine RBC (0-5/HPF) Urine WBC (0-5/HPF) Ur Squamous Epith Cells (0-5/HPF) Amorphous Sediment Urine Bacteria (None) Urine Mucus (Negative) Ur Culture Indicated? Point of care testing: Point of Care Testing Test Results Negative Urine Dip Bedside Urine Glucose 100 mg/dl Bedside Urine Bilirubin - Negative Bedside Urine Ketone +/- 5 Urine Specific [place] 1.015 Bedside Urine Occult Blood - Negative Bedside Urine pH 6.5 Bedside Urine Protein +/- 15 Bedside Urine Urobilinogen +/- 1mg Bedside Urine Nitrite - Negative Bedside Urine Leukocytes ++ 125 Esterase Discharge Plan Departure Patient Disposition: Home Clinical Impression: Chronic UTI Gastritis Qualifiers: Gastritis type: unspecified gastritis Chronicity: unspecified Gastritis bleeding: presence of bleeding unspecified Qualified Code(s): K29.70 - Gastritis, unspecified, without bleeding Discharge Date/Time: 09/24/19 15:41 Activity Restrictions/Additional Instructions: You have been diagnosed with [chronic UTI and gastritis. The urine test is being cultured at this time and you get a phone call if you need treatment with antibiotic medications. In the past 3 urine culture was negative for specific organism infection. You were treated with GI cocktail and pantoprazole while in ED. The lab test were unremarkable.]. What to do: *Take your medications as directed. Start omeprazole tomorrow *Follow up with your primary care provider in 2-3 days, call for an appointment. Let them know you were seen in the ED and that we asked you to be seen in follow up. *Return to ED if you have any new, worsening, or concerning symptoms, such as [nausea/vomiting, fever, able to tolerate fluids, chest pain, breathing difficulty, or any acute concerns]. Prescriptions: New omeprazole 20 mg capsule,delayed release(DR/EC) 20 mg PO DAILY Qty: 14 RF: 0 No Action fluoxetine 40 mg capsule 40 mg PO DAILY RF: 0 metformin 1,000 mg tablet 1,000 mg PO BID RF: 0 nitrofurantoin monohyd/m-cryst 100 mg capsule 100 mg PO QWEEK RF: 0 divalproex 500 mg tablet extended release 24 hr 1,500 mg PO DAILY RF: 0 diphenhydramine HCl [Banophen] 25 mg capsule 25 mg PO Q8H PRN (Reason: Allergic Reaction) RF: 0 ondansetron 4 mg tablet,disintegrating 4 mg PO Q6H PRN (Reason: Nausea) RF: 0 diphenoxylate-atropine 2.5-0.025 mg tablet 1 tab PO BID PRN (Reason: diarrhea) Qty: 60 RF: 0 Referrals: Gilmar Lane [Primary Care Provider] -
[2019-09-24 15:40] VITALS: BP 116/70; PULSE 78; RESP 16; O2SAT 97
== END 2019-09-24 15:41 | disposition home or self-care (01) ==
PROVIDERS: Emergency Medicine; Emergency Provider Nurse Practitioner Family; PCP Physician Assistant Medical
DX: N39.0 Urinary tract infection, site not specified (principal); K29.70 Gastritis, unspecified, without bleeding
CPT/HCPCS: 36415; 80053; 81003; 81015; 81025; 83690; 85025; 85610; 85730; 87077; 87086; 87186; 93005; 96374; 99283; 99284; C9113

== ENCOUNTER 2019-11-25 11:47 | Emergency (ER) | payer MEDICARE, MEDICAID, SELFPAY ==
[2019-11-25 11:51] VITALS: BP 114/71; PULSE 93; RESP 18; TEMP 36.7; O2SAT 100
[2019-11-25] MEDS: ONDANSETRON 4 MG ODT PO (12:07)
[2019-11-25 12:38] LABS: Bacteria Urine None Seen; RBC Urine None Seen (0-5/HPF)
--- NOTE | 2019-11-25 12:40 | DI.RAD.S_ITS ---
PROCEDURE: XR ACUTE ABDOMEN SERIES INDICATIONS: abd pain TECHNIQUE: One view chest and two views of the abdomen were acquired. COMPARISON: None. FINDINGS: Surgical changes and devices: None. Chest: Low lung volumes are noted. This causes a crowded appearance to the lung markings and limits evaluation. Likely atelectasis can be seen at the lung bases. Cardiac and mediastinal silhouettes are partially obscured, yet are regarded to be stable. Abdomen: Bowel gas pattern is normal. No suspicious calcifications. Visualized solid organ contours appear normal. Bones: No suspicious bony lesions. Age-appropriate bony degenerative changes are seen. IMPRESSION: A nonobstructive bowel gas pattern is seen. As clinically appropriate, please consider a repeat plain film study or a dedicated CT of the abdomen and pelvis, if the patient's symptoms persist or worsen. Low lung volumes. Dictated by: Prakash Davies M.D. on 11/25/2019 at 12:27 Approved by: Prakash Davies M.D. on 11/25/2019 at 12:28
[2019-11-25 12:45] LABS: Add Manual Diff / Slide Review NO; Basophils Absolute Auto 0 /uL (0-100); Basophils Percent Auto 1.1 % (0-2); Eosinophils Absolute Auto 100 /uL (0-450); Eosinophils Percent Auto 3.1 % (2-4); Hematocrit 41.6 % (36-46); Hemoglobin 14.1 g/dL (12.0-16.0); Lymphocytes Absolute Auto 1400 /uL (1100-4500); Lymphocytes Percent Auto 34.9 % (25-40); Mean Corpuscular Hemoglobin 31.5 PG (26-34); Mean Corpuscular Volume 92.8 fL (80-100); Monocytes Absolute Auto 400 /uL (0-900); Monocytes Percent Auto 10.6 % (3-14); Neutrophils Absolute Auto 1900 /uL (1500-7000); Neutrophils Percent Auto 50.3 % (50-75); Platelet Count 159 X10^3/uL (150-400); Red Blood Cell Count 4.48 X10^6/uL (4.0-5.2); Red Cell Distribution Width 13.4 % (11.6-14.8); White Blood Cell Count 3.9 X10^3/uL (4.5-11.0)
[2019-11-25 12:45] LABS: Influenza A - CEPHEID Flu A NEGATIVE (NEGATIVE); Influenza B - CEPHEID Flu B NEGATIVE (NEGATIVE)
[2019-11-25 12:59] LABS: Culture Indicated Urine Cult Not Indicated; Mucus Urine 1+ (Negative); Squamous Epithelial Cell Urine 5-10 /HPF (0-5/HPF); WBC Urine 5-10/HPF (0-5/HPF)
[2019-11-25 13:08] LABS: Magnesium 1.9 mg/dL (1.6-2.3)
[2019-11-25 13:09] LABS: Alanine Aminotransferase 11 IU/L (<35); Albumin 4.2 g/dL (3.5-5.0); Albumin Globulin Ratio 1.5 (1.0-2.8); Alkaline Phosphatase 56 U/L (38-126); Amylase 65 U/L (30-110); Aspartate Aminotransferase 17 IU/L (14-36); BUN Creatinine Ratio 31.7 (6-22); Bilirubin Total 0.5 mg/dL (0.2-1.3); Blood Urea Nitrogen 19 mg/dL (7-17); Calcium 8.9 mg/dL (8.4-10.2); Carbon Dioxide 26 mmol/L (22-32); Chloride 102 mmol/L (98-107); Estimated Glomerular Filt Rate > 60.0 mL/min (>60); Globulin 2.8 g/dL (1.7-4.1); Glucose 157 mg/dL (70-100); HEMOLYSIS < 15 (0-50); Lipase 73 U/L (23-300); Sodium 138 mmol/L (137-145)
[2019-11-25 13:17] LABS: Prothrombin Time 11.1 SECONDS (10.1-12.7)
[2019-11-25] MEDS: METOCLOPRAMIDE HCL 10 MG TABLET PO (13:43)
[2019-11-25 14:01] VITALS: BP 108/56; PULSE 85; RESP 18; O2SAT 100
--- NOTE | 2019-11-25 15:42 | ED_ITS ---
HPI - Nausea/Vomiting/Diarrhea <JESS Candelario - Last Filed: 11/25/19 15:51> General Chief complaint: Nausea/Vomiting/Diarrhea Stated complaint: sharp pains in stomach Diarrhea and nausea cant ea Time Seen by Provider: 11/25/19 11:52 Source: patient Mode of arrival: Ambulatory Limitations: altered mental status History of Present Illness HPI Narrative: The patient is a 39-year-old female nonsmoker with developmental delay with her sister for chief complaint of vomiting, diarrhea with some stomach cramping. She states this has been going on for a few days now. She had diarrhea 4 times yesterday. She denies any fevers or chills. She has had no diarrhea or vomiting today. She denies any cough, congestion, ear pain sore throat. She complains of stomach cramping with her episodes of diarrhea. She has not seen her primary care provider yet, but has an appointment soon. She does have a history of chronic UTI, takes Macrobid once weekly. Related Data Home Medications Medication Instructions Recorded Confirmed diphenhydramine HCl [Banophen] 25 mg PO Q8H PRN 09/01/19 09/01/19 divalproex 1,500 mg PO DAILY 09/01/19 09/01/19 fluoxetine 40 mg PO DAILY 09/01/19 09/01/19 metformin 1,000 mg PO BID 09/01/19 09/01/19 nitrofurantoin monohyd/m-cryst 100 mg PO QWEEK 09/01/19 09/01/19 ondansetron 4 mg PO Q6H PRN 09/01/19 09/01/19 Previous Rx's Medication Instructions Recorded diphenoxylate-atropine 2.5 1 tab PO BID PRN #60 tab 04/11/19 mg-0.025 mg tablet omeprazole 20 mg PO DAILY #14 cap 09/24/19 metoclopramide HCl [Reglan] 10 mg PO Q6H PRN #14 tab 11/25/19 ondansetron 4 mg PO Q6H PRN #20 tab 11/25/19 Allergies Allergy/AdvReac Type Severity Reaction Status Date / Time niacin Allergy Severe Anaphylaxis Verified 09/24/19 12:05 Review of Systems <JESS Candelario - Last Filed: 11/25/19 15:51> Review of Systems Narrative: GENERAL: Denies chills, fatigue, malaise, fever, sweats. HEENT: Denies sinus pain, ear pain, sore throat, difficulty swallowing, dizziness. RESPIRATORY: Denies dyspnea, cough, wheezing, hemoptysis, sputum. CARDIOVASCULAR: Denies chest pain, palpitations, orthopnea, edema, GASTROINTESTINAL: See HPI : Denies dysuria, frequency, incontinence, hematuria, urinary retention. MUSCULOSKELETAL: denies weakness, joint pain, or bony pain SKIN: Denies rash, skin lesions, or other NEUROLOGIC: Denies weakness, headache, numbness, change in speech, confusion, seizures, incoordination. PSYCHIATRIC: No concerning psychosocial issues. 12 point review of systems is negative except for those stated above Patient History <JESS Candelario - Last Filed: 11/25/19 15:51> Medical History Developmental delay, moderate (Chronic) Migraines (Chronic) Social History marital status: unmarried,single Smoking Status: Never smoker Smoking Status: Never smoker alcohol intake frequency: 0-2 drinks per day Substance Use Type: does not use Exam <JESS Candelario - Last Filed: 11/25/19 15:51> Narrative Exam Narrative: GENERAL: This is a well-nourished, well-developed patient, in mild distress with sister at bedside HEAD: Atraumatic. Normocephalic. No temporal or scalp tenderness. EYES: Pupils equal round and reactive. Extraocular motions intact. No scleral icterus. No injection or drainage. ENT: Nose without bleeding, purulent drainage or septal hematoma. Throat without erythema, tonsillar hypertrophy or exudate. Uvula midline. Airway patent. NECK: Trachea midline. No JVD or lymphadenopathy. Supple, nontender, no meningeal signs. CARDIOVASCULAR: Regular rate and rhythm without murmurs, gallops, or rubs. RESPIRATORY: Clear to auscultation. Breath sounds equal bilaterally. No wheezes, rales, or rhonchi. No cough. No increased respiratory effort. No accessory muscle use. GASTROINTESTINAL: Abdomen soft, diffusely tender to palpation generalized, nondi stended. No hepato-splenomegaly, or palpable masses. No guarding. Active bowel sounds all 4 quadrant EXTREMITIES: No clubbing, cyanosis, or edema. No joint tenderness, effusion, or edema noted. BACK: Nontender without deformity or crepitance. No flank tenderness. NEURO: AOx3. SKIN: No rash or erythema on visible skin Initial Vital Signs Initial Vital Signs: Vital Signs Temperature 98.1 F 11/25/19 11:51 Pulse Rate 93 H 11/25/19 11:51 Respiratory Rate 18 11/25/19 11:51 Blood Pressure 114/71 11/25/19 11:51 Pulse Oximetry 100 11/25/19 11:51 <Alex Smith DO - Last Filed: 11/25/19 15:54> Initial Vital Signs Initial Vital Signs: Vital Signs Temperature 98.1 F 11/25/19 11:51 Pulse Rate 93 H 11/25/19 11:51 Respiratory Rate 18 11/25/19 11:51 Blood Pressure 114/71 11/25/19 11:51 Pulse Oximetry 100 11/25/19 11:51 Course <JESS Candelario - Last Filed: 11/25/19 15:51> Orders Ordered: ED Orders 11/25/19 12:10 Influenza A & B (PCR) Stat 11/25/19 12:36 Urine Microscopic Stat 11/25/19 12:38 Amylase Stat Complete Blood Count AUTO DIFF Stat Comprehensive Metabolic Panel Stat Lipase Stat Magnesium Stat Prothrombin Time INR Stat 11/25/19 12:40 XR acute abdomen series Stat Discontinued Medications Metoclopramide HCl (Reglan) 10 mg PO NOW ONE Stop: 11/25/19 13:32 Last Admin: 11/25/19 13:43 Dose: 10 mg Documented by: TOMASZ Ondansetron HCl (Zofran Odt) 4 mg PO NOW ONE Stop: 11/25/19 12:06 Last Admin: 11/25/19 12:07 Dose: 4 mg Documented by: ALEXANDRA Vital Signs Vital signs: Vital Signs - 8 hr 11/25/19 11:51 11/25/19 14:01 Temperature 98.1 F Pulse Rate 93 H 85 Respiratory Rate 18 18 Blood Pressure 114/71 Blood Pressure [Left Arm] 108/56 L Pulse Oximetry 100 100 <Alex Smith DO - Last Filed: 11/25/19 15:54> Orders Ordered: ED Orders 11/25/19 12:10 Influenza A & B (PCR) Stat 11/25/19 12:36 Urine Microscopic Stat 11/25/19 12:38 Amylase Stat Complete Blood Count AUTO DIFF Stat Comprehensive Metabolic Panel Stat Lipase Stat Magnesium Stat Prothrombin Time INR Stat 11/25/19 12:40 XR acute abdomen series Stat Discontinued Medications Metoclopramide HCl (Reglan) 10 mg PO NOW ONE Stop: 11/25/19 13:32 Last Admin: 11/25/19 13:43 Dose: 10 mg Documented by: TOMASZ Ondansetron HCl (Zofran Odt) 4 mg PO NOW ONE Stop: 11/25/19 12:06 Last Admin: 11/25/19 12:07 Dose: 4 mg Documented by: ALEXANDRA Vital Signs Vital signs: Vital Signs - 8 hr 11/25/19 11:51 11/25/19 14:01 Temperature 98.1 F Pulse Rate 93 H 85 Respiratory Rate 18 18 Blood Pressure 114/71 Blood Pressure [Left Arm] 108/56 L Pulse Oximetry 100 100 MDM - Nausea/Vomiting/Diarrhea <WARD Candelario- - Last Filed: 11/25/19 15:51> Lab Data Result diagrams: 11/25/19 12:38 11/25/19 12:38 Labs: Lab Results 11/25/19 11/25/19 11/25/19 Range/Units 12:10 12:36 12:38 WBC 3.9 L (4.5-11.0) X10^3/uL RBC 4.48 (4.0-5.2) X10^6/uL Hgb 14.1 (12.0-16.0) g/dL Hct 41.6 (36-46) % MCV 92.8 (80-100) fL MCH 31.5 (26-34) PG MCHC 34.0 (30-36) % RDW 13.4 (11.6-14.8) % Plt Count 159 (150-400) X10^3/uL Neut % (Auto) 50.3 (50-75) % Lymph % (Auto) 34.9 (25-40) % [place] % (Auto) 10.6 (3-14) % Eos % (Auto) 3.1 (2-4) % Baso % (Auto) 1.1 (0-2) % Neut # (Auto) 1900 (9800-8972) /uL Lymph # (Auto) 1400 (6321-9812) /uL [place] # (Auto) 400 (0-900) /uL Eos # (Auto) 100 (0-450) /uL Baso # (Auto) 0 (0-100) /uL PT (10.1-12.7) SECONDS INR (0.9-1.3) Sodium (137-145) mmol/L Potassium (3.4-5.1) mmol/L Chloride (98-107) mmol/L Carbon Dioxide (22-32) mmol/L BUN (7-17) mg/dL Creatinine (0.52-1.04) mg/dL Estimated GFR (>60) mL/min BUN/Creatinine Ratio (6-22) Glucose (70-100) mg/dL Calcium (8.4-10.2) mg/dL Magnesium (1.6-2.3) mg/dL Total Bilirubin (0.2-1.3) mg/dL AST (14-36) IU/L ALT (<35) IU/L Alkaline Phosphatase (38-126) U/L Total Protein (6.3-8.2) g/dL Albumin (3.5-5.0) g/dL Globulin (1.7-4.1) g/dL Albumin/Globulin Ratio (1.0-2.8) Amylase (30-110) U/L Lipase (23-300) U/L Urine RBC None seen (0-5/HPF) Urine WBC 5-10/hpf H (0-5/HPF) Ur Squamous Epith Cells 5-10 /hpf H (0-5/HPF) Urine Bacteria None seen (None) Urine Mucus 1+ H (Negative) Ur Culture Indicated? Cult not indicated Influenza A (RT-PCR) Flu a negative (NEGATIVE) Influenza B (RT-PCR) Flu b negative (NEGATIVE) 11/25/19 11/25/19 11/25/19 Range/Units 12:38 12:38 12:38 WBC (4.5-11.0) X10^3/uL RBC (4.0-5.2) X10^6/uL Hgb (12.0-16.0) g/dL Hct (36-46) % MCV (80-100) fL MCH (26-34) PG MCHC (30-36) % RDW (11.6-14.8) % Plt Count (150-400) X10^3/uL Neut % (Auto) (50-75) % Lymph % (Auto) (25-40) % [place] % (Auto) (3-14) % Eos % (Auto) (2-4) % Baso % (Auto) (0-2) % Neut # (Auto) (6903-3287) /uL Lymph # (Auto) (5364-7639) /uL [place] # (Auto) (0-900) /uL Eos # (Auto) (0-450) /uL Baso # (Auto) (0-100) /uL PT 11.1 (10.1-12.7) SECONDS INR 1.0 (0.9-1.3) Sodium 138 (137-145) mmol/L Potassium 4.0 (3.4-5.1) mmol/L Chloride 102 (98-107) mmol/L Carbon Dioxide 26 (22-32) mmol/L BUN 19 H (7-17) mg/dL Creatinine 0.60 (0.52-1.04) mg/dL Estimated GFR > 60.0 (>60) mL/min BUN/Creatinine Ratio 31.7 H (6-22) Glucose 157 H (70-100) mg/dL Calcium 8.9 (8.4-10.2) mg/dL Magnesium 1.9 (1.6-2.3) mg/dL Total Bilirubin 0.5 (0.2-1.3) mg/dL AST 17 (14-36) IU/L ALT 11 (<35) IU/L Alkaline Phosphatase 56 (38-126) U/L Total Protein 7.0 (6.3-8.2) g/dL Albumin 4.2 (3.5-5.0) g/dL Globulin 2.8 (1.7-4.1) g/dL Albumin/Globulin Ratio 1.5 (1.0-2.8) Amylase 65 (30-110) U/L Lipase 73 (23-300) U/L Urine RBC (0-5/HPF) Urine WBC (0-5/HPF) Ur Squamous Epith Cells (0-5/HPF) Urine Bacteria (None) Urine Mucus (Negative) Ur Culture Indicated? Influenza A (RT-PCR) (NEGATIVE) Influenza B (RT-PCR) (NEGATIVE) Point of Care Testing Test Results Negative Urine Dip Bedside Urine Glucose Negative Bedside Urine Bilirubin + 1 Bedside Urine Ketone ++ 40 Urine Specific Jean 1.025 Bedside Urine Occult Blood - Negative Bedside Urine pH 6.0 Bedside Urine Protein +/- 15 Bedside Urine Urobilinogen - Negative Bedside Urine Nitrite - Negative Bedside Urine Leukocytes + 70 Esterase Imaging Data Chest x-ray: Radiologist's Impression: [address] [address] XRay Report Signed Patient: Nathaniel Arias EMR#: [id number] : 1980Acct:[id number] Age/Sex: 39 / FDate of Service: 11/25/19 Loc: ED Accession Number: [id number] Procedure: XR acute abdomen series Ordering Provider: Leta Nichols-MIGUELINA PROCEDURE: XR ACUTE ABDOMEN SERIES INDICATIONS: abd pain TECHNIQUE: One view chest and two views of the abdomen were acquired. COMPARISON: None. FINDINGS: Surgical changes and devices: None. Chest: Low lung volumes are noted. This causes a crowded appearance to the lung markings and limits evaluation. Likely atelectasis can be seen at the lung bases. Cardiac and mediastinal silhouettes are partially obscured, yet are regarded to be stable. Abdomen: Bowel gas pattern is normal. No suspicious calcifications. Visualized solid organ contours appear normal. Bones: No suspicious bony lesions. Age-appropriate bony degenerative changes are seen. IMPRESSION: A nonobstructive bowel gas pattern is seen. As clinically appropriate, please consider a repeat plain film study or a dedicated CT of the abdomen and pelvis, if the patient's symptoms persist or worsen. Low lung volumes. Dictated by: Prakash Davies M.D. on 11/25/2019 at 12:27 Approved by: Prakash Davies M.D. on 11/25/2019 at 12:[address] [facility] Narrative Medical decision making narrative: The patient is a 39-year-old female with developmental delay who presents with a chief complaint of nausea in the absence of vomiting and diarrhea. She has had no episodes of diarrhea or vomiting today. Her lab work is grossly normal, she is taking p.o. fluids well. She has no acute findings on acute abdominal x-ray series. Given her history of chronic UTIs we did obtain a urinalysis, but this came back with no concerns of infection. She felt better after Zofran and Reglan, so I sent prescriptions of these in for her. She was able to keep down 2 cans of mike lindsay. I discussed at length with patient and her sister that we did not do a CT scan today given her overall benign exam, normal lab work, inability to take p.o. fluids etcetera. Discussed at length coming back to the emergency department for any acute concerns such as inability keep down fluids, abdominal pain with fever cetera. She also test negative for the flu. Encourage PCP follow-up in a light diet. Patient and sister have no questions or concerns upon discharge and state understanding of return precautions as well as follow-up care. <Alex Smith, DO - Last Filed: 11/25/19 15:54> Lab Data Labs: Lab Results 11/25/19 11/25/19 11/25/19 Range/Units 12:10 12:36 12:38 WBC 3.9 L (4.5-11.0) X10^3/uL RBC 4.48 (4.0-5.2) X10^6/uL Hgb 14.1 (12.0-16.0) g/dL Hct 41.6 (36-46) % MCV 92.8 (80-100) fL MCH 31.5 (26-34) PG MCHC 34.0 (30-36) % RDW 13.4 (11.6-14.8) % Plt Count 159 (150-400) X10^3/uL Neut % (Auto) 50.3 (50-75) % Lymph % (Auto) 34.9 (25-40) % [place] % (Auto) 10.6 (3-14) % Eos % (Auto) 3.1 (2-4) % Baso % (Auto) 1.1 (0-2) % Neut # (Auto) 1900 (1874-6510) /uL Lymph # (Auto) 1400 (6002-1496) /uL [place] # (Auto) 400 (0-900) /uL Eos # (Auto) 100 (0-450) /uL Baso # (Auto) 0 (0-100) /uL PT (10.1-12.7) SECONDS INR (0.9-1.3) Sodium (137-145) mmol/L Potassium (3.4-5.1) mmol/L Chloride (98-107) mmol/L Carbon Dioxide (22-32) mmol/L BUN (7-17) mg/dL Creatinine (0.52-1.04) mg/dL Estimated GFR (>60) mL/min BUN/Creatinine Ratio (6-22) Glucose (70-100) mg/dL Calcium (8.4-10.2) mg/dL Magnesium (1.6-2.3) mg/dL Total Bilirubin (0.2-1.3) mg/dL AST (14-36) IU/L ALT (<35) IU/L Alkaline Phosphatase (38-126) U/L Total Protein (6.3-8.2) g/dL Albumin (3.5-5.0) g/dL Globulin (1.7-4.1) g/dL Albumin/Globulin Ratio (1.0-2.8) Amylase (30-110) U/L Lipase (23-300) U/L Urine RBC None seen (0-5/HPF) Urine WBC 5-10/hpf H (0-5/HPF) Ur Squamous Epith Cells 5-10 /hpf H (0-5/HPF) Urine Bacteria None seen (None) Urine Mucus 1+ H (Negative) Ur Culture Indicated? Cult not indicated Influenza A (RT-PCR) Flu a negative (NEGATIVE) Influenza B (RT-PCR) Flu b negative (NEGATIVE) 11/25/19 11/25/19 11/25/19 Range/Units 12:38 12:38 12:38 WBC (4.5-11.0) X10^3/uL RBC (4.0-5.2) X10^6/uL Hgb (12.0-16.0) g/dL Hct (36-46) % MCV (80-100) fL MCH (26-34) PG MCHC (30-36) % RDW (11.6-14.8) % Plt Count (150-400) X10^3/uL Neut % (Auto) (50-75) % Lymph % (Auto) (25-40) % [place] % (Auto) (3-14) % Eos % (Auto) (2-4) % Baso % (Auto) (0-2) % Neut # (Auto) (4091-8417) /uL Lymph # (Auto) (2346-2605) /uL [place] # (Auto) (0-900) /uL Eos # (Auto) (0-450) /uL Baso # (Auto) (0-100) /uL PT 11.1 (10.1-12.7) SECONDS INR 1.0 (0.9-1.3) Sodium 138 (137-145) mmol/L Potassium 4.0 (3.4-5.1) mmol/L Chloride 102 (98-107) mmol/L Carbon Dioxide 26 (22-32) mmol/L BUN 19 H (7-17) mg/dL Creatinine 0.60 (0.52-1.04) mg/dL Estimated GFR > 60.0 (>60) mL/min BUN/Creatinine Ratio 31.7 H (6-22) Glucose 157 H (70-100) mg/dL Calcium 8.9 (8.4-10.2) mg/dL Magnesium 1.9 (1.6-2.3) mg/dL Total Bilirubin 0.5 (0.2-1.3) mg/dL AST 17 (14-36) IU/L ALT 11 (<35) IU/L Alkaline Phosphatase 56 (38-126) U/L Total Protein 7.0 (6.3-8.2) g/dL Albumin 4.2 (3.5-5.0) g/dL Globulin 2.8 (1.7-4.1) g/dL Albumin/Globulin Ratio 1.5 (1.0-2.8) Amylase 65 (30-110) U/L Lipase 73 (23-300) U/L Urine RBC (0-5/HPF) Urine WBC (0-5/HPF) Ur Squamous Epith Cells (0-5/HPF) Urine Bacteria (None) Urine Mucus (Negative) Ur Culture Indicated? Influenza A (RT-PCR) (NEGATIVE) Influenza B (RT-PCR) (NEGATIVE) Point of Care Testing Test Results Negative Urine Dip Bedside Urine Glucose Negative Bedside Urine Bilirubin + 1 Bedside Urine Ketone ++ 40 Urine Specific Jean 1.025 Bedside Urine Occult Blood - Negative Bedside Urine pH 6.0 Bedside Urine Protein +/- 15 Bedside Urine Urobilinogen - Negative Bedside Urine Nitrite - Negative Bedside Urine Leukocytes + 70 Esterase Discharge Plan Departure Patient Disposition: Home Clinical Impression: Nausea Abdominal pain Qualifiers: Abdominal location: generalized Qualified Code(s): R10.84 - Generalized abdominal pain Discharge Date/Time: 11/25/19 14:37 Instructions: DI for Abdominal Pain-Adult, DI for Nausea -- Adult Activity Restrictions/Additional Instructions: Today your x-ray, lab work and urinalysis came back well We've given you 2 different medications for nausea. I sent these prescriptions to [facility] in [place]. Please try the Zofran or ondansetron 1st at home Please come back to emergency department for any acute concerns such as inability keep down fluids, abdominal pain with fever etcetera Please follow-up with primary care provider in the next few days Prescriptions: New ondansetron 4 mg tablet,disintegrating 4 mg PO Q6H PRN (Reason: nausea and vomiting) Qty: 20 RF: 0 metoclopramide HCl [Reglan] 10 mg tablet 10 mg PO Q6H PRN (Reason: nausea and vomiting) Qty: 14 RF: 0 No Action fluoxetine 40 mg capsule 40 mg PO DAILY RF: 0 metformin 1,000 mg tablet 1,000 mg PO BID RF: 0 nitrofurantoin monohyd/m-cryst 100 mg capsule 100 mg PO QWEEK RF: 0 divalproex 500 mg tablet extended release 24 hr 1,500 mg PO DAILY RF: 0 diphenhydramine HCl [Banophen] 25 mg capsule 25 mg PO Q8H PRN (Reason: Allergic Reaction) RF: 0 ondansetron 4 mg tablet,disintegrating 4 mg PO Q6H PRN (Reason: Nausea) RF: 0 omeprazole 20 mg capsule,delayed release(DR/EC) 20 mg PO DAILY Qty: 14 RF: 0 diphenoxylate-atropine 2.5-0.025 mg tablet 1 tab PO BID PRN (Reason: diarrhea) Qty: 60 RF: 0 Referrals: Gilmar Lane [Primary Care Provider] - <Alex Smith DO - Last Filed: 11/25/19 15:54> Sign Out Provider Sign Out Attestation: Dr Smith Co-Sign Statement: I was available for consultation during this patient's emergency department visit. This chart is signed by myself for administrative purposes only. I did not have direct contact with this patient during this visit. They were seen independently by the APC.
== END 2019-11-25 14:37 | disposition home or self-care (01) ==
PROVIDERS: Emergency Provider Nurse Practitioner Family; PCP Physician Assistant Medical
DX: R10.84 Generalized abdominal pain (principal); R19.7 Diarrhea, unspecified; R11.0 Nausea
CPT/HCPCS: 36415; 74022; 80053; 81003; 81015; 81025; 82150; 83690; 83735; 85025; 85610; 87502; 99283; 99284

== ENCOUNTER 2020-01-22 11:43 | Emergency (ER) | payer MEDICARE, MEDICAID, SELFPAY ==
[2020-01-22 11:46] VITALS: BP 103/70; PULSE 81; RESP 16; TEMP 36.6; O2SAT 99; BMI 37.8
[2020-01-22 13:00] VITALS: BP 155/82; PULSE 70; RESP 18; O2SAT 95
[2020-01-22] MEDS: KETOROLAC 60 MG/2 ML VIAL 30 MG IV (13:41)
[2020-01-22] MEDS: METOCLOPRAMIDE 10 MG/2 ML INJ 5 MG IV (13:41)
[2020-01-22] MEDS: diphenhydrAMINE 50 MG/ML VIAL 25 MG IV ×2 (13:41→15:18)
[2020-01-22] MEDS: SODIUM CHLORIDE 0.9% 1,000 ML 1000 ML IV (13:41)
--- NOTE | 2020-01-22 13:45 | ED.HA ---
HPI - Headache <WARD Candelario-BC - Last Filed: 01/22/20 16:15> General Chief Complaint: Headache Stated Complaint: MIGRAINE X3days Time Seen by Provider: 01/22/20 13:23 Source: patient and family Mode of arrival: Ambulatory Limitations: no limitations History of Present Illness HPI Narrative: The patient is a 40-year-old female with developmental delay who presents with her sister/environmental engineering aide for chief complaint of a headache for 3-4 days. She complains of sensitivity to light, no sensitive to noise, nausea no vomiting. She states it feels like a hammer inside her head. She denies any thunderclap sensation. She has taken [id number] headache medicine at home, use heat packs, ice packs. She is supposed to see a headache specialist in the next 6 weeks. She called her primary care provider's office to try to arrange for a Toradol injection, but they are unable to accommodate her today so she presents to the emergency department. She denies any neurological changes. No fevers. No trauma. Related Data Home Medications Medication Instructions Recorded Confirmed diphenhydramine HCl [Banophen] 25 mg PO Q8H PRN 09/01/19 09/01/19 divalproex 1,500 mg PO DAILY 09/01/19 01/22/20 fluoxetine 40 mg PO DAILY 09/01/19 09/01/19 metformin 1,000 mg PO BID 09/01/19 01/22/20 nitrofurantoin monohyd/m-cryst 100 mg PO QWEEK 09/01/19 09/01/19 Previous Rx's Medication Instructions Recorded diphenoxylate-atropine 2.5 1 tab PO BID PRN #60 tab 04/11/19 mg-0.025 mg tablet omeprazole 20 mg PO DAILY #14 cap 09/24/19 metoclopramide HCl [Reglan] 10 mg PO Q6H PRN #14 tab 11/25/19 ondansetron 4 mg PO Q6H PRN #20 tab 11/25/19 Allergies Allergy/AdvReac Type Severity Reaction Status Date / Time niacin Allergy Severe Anaphylaxis Verified 01/22/20 11:55 Review of Systems <JESS Candelario - Last Filed: 01/22/20 16:15> Review of Systems Narrative: GENERAL: Denies chills, fatigue, malaise, fever, sweats. HEENT: Denies sinus pain, ear pain, sore throat, difficulty swallowing, dizziness. RESPIRATORY: Denies dyspnea, cough, wheezing, hemoptysis, sputum. CARDIOVASCULAR: Denies chest pain, palpitations, orthopnea, edema, GASTROINTESTINAL: See HPI : Denies dysuria, frequency, incontinence, hematuria, urinary retention. MUSCULOSKELETAL: denies weakness, joint pain, or bony pain SKIN: Denies rash, skin lesions, or other NEUROLOGIC: See HPI PSYCHIATRIC: No concerning psychosocial issues. 12 point review of systems is negative except for those stated above Patient History <JESS Candelario - Last Filed: 01/22/20 16:15> Medical History Developmental delay, moderate (Chronic) Migraines (Chronic) Social History marital status: unmarried,single Smoking Status: Never smoker Smoking Status: Never smoker alcohol intake frequency: 0-2 drinks per day Substance Use Type: does not use Exam <JESS Candelario - Last Filed: 01/22/20 16:15> Narrative Exam Narrative: GENERAL: This is a well-nourished, well-developed patient, in no acute distress HEAD: Atraumatic. Normocephalic. No temporal or scalp tenderness. EYES: Pupils equal round and reactive. Extraocular motions intact. No scleral icterus. No injection or drainage. ENT: Nose without bleeding, purulent drainage or septal hematoma. Throat without erythema, tonsillar hypertrophy or exudate. Uvula midline. Airway patent. NECK: Trachea midline. No JVD or lymphadenopathy. Supple, nontender, no meningeal signs. CARDIOVASCULAR: Regular rate and rhythm RESPIRATORY: Clear to auscultation. Breath sounds equal bilaterally. No wheezes, rales, or rhonchi. No cough. No increased respiratory effort. No accessory muscle use GASTROINTESTINAL: Abdomen soft, non-tender, nondistended. No hepato-splenomegaly, or palpable masses. No guarding. EXTREMITIES: No clubbing, cyanosis, or edema. No joint tenderness, effusion, or edema noted. BACK: Nontender without deformity or crepitance. No flank tenderness. NEURO: AOx3. Clear speech. No gross cranial nerve deficit. Stable gait. Strength is equal upper and lower extremities bilaterally. SKIN: No rash or erythema. Initial Vital Signs Initial Vital Signs: Vital Signs Temperature 97.9 F 01/22/20 11:46 Pulse Rate 81 01/22/20 11:46 Respiratory Rate 16 01/22/20 11:46 Blood Pressure 103/70 01/22/20 11:46 Pulse Oximetry 99 01/22/20 11:46 <Leta Reis DO - Last Filed: 01/22/20 19:58> Initial Vital Signs Initial Vital Signs: Vital Signs Temperature 97.9 F 01/22/20 11:46 Pulse Rate 81 01/22/20 11:46 Respiratory Rate 16 01/22/20 11:46 Blood Pressure 103/70 01/22/20 11:46 Pulse Oximetry 99 01/22/20 11:46 Course <WARD Candelario-BC - Last Filed: 01/22/20 16:15> Orders Ordered: Discontinued Medications Acetaminophen (Tylenol) 975 mg PO NOW ONE Stop: 01/22/20 14:51 Last Admin: 01/22/20 15:18 Dose: 975 mg Documented by: ARIANNE Diphenhydramine HCl (Benadryl) 25 mg IV NOW ONE Stop: 01/22/20 13:35 Last Admin: 01/22/20 13:41 Dose: 25 mg Documented by: ARIANNE Diphenhydramine HCl (Benadryl) 25 mg IV NOW ONE Stop: 01/22/20 14:50 Last Admin: 01/22/20 15:18 Dose: 25 mg Documented by: ARIANNE Sodium Chloride (Normal Saline 0.9%) 1,000 mls @ 1,000 mls/hr IV BOLUS ONE Stop: 01/22/20 14:33 Last Infusion: 01/22/20 15:19 Dose: 0 mls/hr Documented by: Admin: 01/22/20 13:41 Dose: 1,000 mls/hr Documented by: ARIANNE Ketorolac Tromethamine (Toradol) 30 mg IV NOW ONE Stop: 01/22/20 13:36 Last Admin: 01/22/20 13:41 Dose: 30 mg Documented by: ARIANNE Metoclopramide HCl (Reglan) 5 mg IV NOW ONE Stop: 01/22/20 13:35 Last Admin: 01/22/20 13:41 Dose: 5 mg Documented by: ARIANNE Ondansetron HCl (Zofran) 4 mg IV NOW ONE Stop: 01/22/20 14:50 Last Admin: 01/22/20 15:18 Dose: 4 mg Documented by: ARIANNE Vital Signs Vital signs: Vital Signs - 8 hr 01/22/20 13:00 01/22/20 14:00 01/22/20 15:44 Pulse Rate 70 63 66 Respiratory Rate 18 Blood Pressure [Left Arm] 155/82 H 113/64 115/59 L Pulse Oximetry 95 99 97 <Leta Reis DO - Last Filed: 01/22/20 19:58> Orders Ordered: Discontinued Medications Acetaminophen (Tylenol) 975 mg PO NOW ONE Stop: 01/22/20 14:51 Last Admin: 01/22/20 15:18 Dose: 975 mg Documented by: ARIANNE Diphenhydramine HCl (Benadryl) 25 mg IV NOW ONE Stop: 01/22/20 13:35 Last Admin: 01/22/20 13:41 Dose: 25 mg Documented by: ARIANNE Diphenhydramine HCl (Benadryl) 25 mg IV NOW ONE Stop: 01/22/20 14:50 Last Admin: 01/22/20 15:18 Dose: 25 mg Documented by: ARIANNE Sodium Chloride (Normal Saline 0.9%) 1,000 mls @ 1,000 mls/hr IV BOLUS ONE Stop: 01/22/20 14:33 Last Infusion: 01/22/20 15:19 Dose: 0 mls/hr Documented by: Admin: 01/22/20 13:41 Dose: 1,000 mls/hr Documented by: ARIANNE Ketorolac Tromethamine (Toradol) 30 mg IV NOW ONE Stop: 01/22/20 13:36 Last Admin: 01/22/20 13:41 Dose: 30 mg Documented by: ARIANNE Metoclopramide HCl (Reglan) 5 mg IV NOW ONE Stop: 01/22/20 13:35 Last Admin: 01/22/20 13:41 Dose: 5 mg Documented by: ARIANNE Ondansetron HCl (Zofran) 4 mg IV NOW ONE Stop: 01/22/20 14:50 Last Admin: 01/22/20 15:18 Dose: 4 mg Documented by: ARIANNE Vital Signs Vital signs: Vital Signs - 8 hr 01/22/20 13:00 01/22/20 14:00 01/22/20 15:44 Pulse Rate 70 63 66 Respiratory Rate 18 Blood Pressure [Left Arm] 155/82 H 113/64 115/59 L Pulse Oximetry 95 99 97 MDM - Headache <Leta Bluemer, IT TEACHER-BC - Last Filed: 01/22/20 16:15> MDM Narrative Medical decision making narrative: The patient is a 40-year-old female presents with a chief complaint of headache with her sister. She has a developmental delay. Patient has a history of headaches, states that this is typical. No thunderclap sensation. No neurological changes. Pain was was given medications as listed above and felt much improved. She was able to rest and stated she was ready to go home. I discussed at length the importance of following up with primary care provider, coming back to the emergency department for any acute concerns such as confusion etcetera. Patient and sister have no questions or concerns upon discharge and state understanding of return precautions as well as follow-up care. Discharge Plan Departure Patient Disposition: Home Clinical Impression: Headache Qualifiers: Headache type: unspecified Headache chronicity pattern: acute headache Intractability: not intractable Qualified Code(s): R51 - Headache Discharge Date/Time: 01/22/20 16:18 Instructions: DI for Headache Activity Restrictions/Additional Instructions: Please go home and rest. Please push fluids. Please follow-up with primary care provider in the next few days. Please come back to the emergency department for any acute concerns Prescriptions: No Action fluoxetine 40 mg capsule 40 mg PO DAILY RF: 0 metformin 1,000 mg tablet 1,000 mg PO BID RF: 0 nitrofurantoin monohyd/m-cryst 100 mg capsule 100 mg PO QWEEK RF: 0 divalproex 500 mg tablet extended release 24 hr 1,500 mg PO DAILY RF: 0 diphenhydramine HCl [Banophen] 25 mg capsule 25 mg PO Q8H PRN (Reason: Allergic Reaction) RF: 0 omeprazole 20 mg capsule,delayed release(DR/EC) 20 mg PO DAILY Qty: 14 RF: 0 ondansetron 4 mg tablet,disintegrating 4 mg PO Q6H PRN (Reason: nausea and vomiting) Qty: 20 RF: 0 metoclopramide HCl [Reglan] 10 mg tablet 10 mg PO Q6H PRN (Reason: nausea and vomiting) Qty: 14 RF: 0 diphenoxylate-atropine 2.5-0.025 mg tablet 1 tab PO BID PRN (Reason: diarrhea) Qty: 60 RF: 0 Referrals: Gilmar Lane [Primary Care Provider] -
[2020-01-22 14:00] VITALS: BP 113/64; PULSE 63; O2SAT 99
[2020-01-22] MEDS: ONDANSETRON 4 MG/2 ML INJ IV (15:18)
[2020-01-22] MEDS: ACETAMINOPHEN 325 MG TABLET 975 MG PO (15:18)
[2020-01-22 15:44] VITALS: BP 115/59; PULSE 66; O2SAT 97
== END 2020-01-22 16:18 | disposition home or self-care (01) ==
PROVIDERS: Emergency Provider Nurse Practitioner Family; PCP Physician Assistant Medical
DX: R51 Headache (principal)
CPT/HCPCS: 96361; 96374; 96375; 96376; 99284; J1200; J1885; J2405; J2765